=== PATIENT | female | born 1995 | race Caucasian/White ===

== ENCOUNTER 2022-10-16 14:46 | Emergency (ER) | payer MEDICAID, SELFPAY ==
[2022-10-16 14:52] VITALS: BP 116/90; PULSE 111; RESP 18; TEMP 36.7; O2SAT 97; BMI 43.5
--- NOTE | 2022-10-16 15:18 | XR_ITS ---
The [address] [address] Patient Name: BELINDA LUX MRN: [id number] date: 1995 Sex: F Assigned Patient Location: ER Current Patient Location: ER Accession/Order Number: [id number] Exam Date: 10/16/2022 15:32 Report Date: 10/16/2022 15:54 At the request of: STEVE BURK Procedure: XR lumbar spine 2-3V EXAM: XR lumbar spine 2-3V HISTORY: Back spasm COMPARISON: None. TECHNIQUE: 2 views FINDINGS: Maintenance of the normal lumbar lordosis.. Vertebral body heights and alignments exhibit no fracture or listhesis. Intervertebral disc space heights are unremarkable XR/XR lumbar spine 2-3V IMPRESSION: Normal lumbar spine x-rays Electronically authenticated by: FERNANDO ROA Date: 10/16/2022 15:54
--- NOTE | 2022-10-16 15:18 | ED.BACK1 ---
Documented by User: ROBERT Cook 10/16/22 15:59 HPI - Back Pain/Injury General Chief Complaint: Back Pain/Injury Stated Complaint: BACK PAIN Time Seen by Provider: 10/16/22 15:10 Source: patient Mode of arrival: ambulance History of Present Illness HPI Narrative: patient is a 27-year-old female presents to the emergency department for the evaluation of mid to low back pain that began this morning at 5 AM. She denies any mechanism of injury or trauma. She states she has no pain radiation to the lower extremities, no urinary symptoms or peripheral paresthesias. She is not concerned for , she is not sexually active. She states she took one of her father's muscle relaxants a few hours ago and currently has no symptoms or pain in her back. She states she was concerned that the pain may return. She has no other upper respiratory symptoms. No abdominal pain. Related Data Previous Rx's Medication Instructions Recorded methocarbamol 750 mg tablet 750 mg PO TID PRN pain #20 tabs 10/16/22 Allergies Allergy/AdvReac Type Severity Reaction Status Date / Time No Known Drug Allergies Allergy Verified 10/16/22 14:52 Review of Systems ROS Constitutional Denies: fever or chills Ears, nose, mouth, and throat Denies: throat pain Cardiovascular Denies: chest pain Respiratory Denies: shortness of breath Gastrointestinal Denies: abdominal pain, nausea or vomiting Genitourinary Denies: painful urination Musculoskeletal Reports: back pain Integumentary/Breast Denies: rash Endocrine Denies: excessive urination Exam Narrative Exam Narrative: Gen.: Awake, alert, in no distress Head: Normocephalic, atraumatic ENT: Moist mucous membranes Respiratory: No respiratory distress Extremities: Moves extremities equally, normal ambulation with flexion and extension of the lower extremities, no decrease in sensation to the legs Back: no bony tenderness of the T-spine or L-spine. No obvious deformity or step-off. No paraspinal tenderness or posterior chest tenderness Psych: Normal mood and affect Neuro: No focal neuro deficit Skin: Warm, dry, intact Constitutional Vital Signs, click to edit/add: Last Vital Signs Temp 98.0 F 10/16/22 14:52 Pulse 87 10/16/22 16:04 Resp 16 10/16/22 16:04 BP 118/88 10/16/22 16:04 Pulse Ox 99 10/16/22 16:04 O2 Del Method Room Air 10/16/22 14:52 Course Vital Signs Vital signs: Vital Signs Temperature 98.0 F 10/16/22 14:52 Pulse Rate 111 H 10/16/22 14:52 Respiratory Rate 18 10/16/22 14:52 Blood Pressure 116/90 10/16/22 14:52 Pulse Oximetry 97 10/16/22 14:52 Oxygen Delivery Method Room Air 10/16/22 14:52 Temperature 98.0 F 10/16/22 14:52 Pulse Rate 87 10/16/22 16:04 Respiratory Rate 16 10/16/22 16:04 Blood Pressure 118/88 10/16/22 16:04 Pulse Oximetry 99 10/16/22 16:04 Oxygen Delivery Method Room Air 10/16/22 14:52 MDM - Back Pain/Injury MDM Narrative Medical decision making narrative: patient has no pain or focal medical complaints in the Emergency Room. Lumbar spine x-rays are unremarkable and urine specimen with no evidence of blood or urinary tract infection. Patient is prescribed Robaxin for home if pain returns, given education and reassurance. She has stable vital signs and a benign exam at discharge. Follow-up with PCP. Rest, ice, gentle stretching and return to the Emergency Room if symptoms change or worsen. Medical Records Attestation: I reviewed the patient's medical records. Lab Data Labs: Lab Results 10/16/22 Range/Units 15:16 Urine Color Yellow (YELLOW) Urine Clarity Clear (CLEAR) Urine pH 5.5 (5.0-9.0) Ur Specific [place] >=1.030 A (1.005-1.025) Urine Protein Negative (NEG/TRACE) mg/dL Urine Glucose (UA) Negative (NEGATIVE) mg/dL Urine Ketones Negative (NEGATIVE) mg/dL Urine Occult Blood Negative (NEGATIVE) Urine Nitrite Negative (NEGATIVE) Urine Bilirubin Negative (NEGATIVE) Urine Urobilinogen 0.2 (0.2-1.0) EU/dL Ur Leukocyte Esterase Negative (NEGATIVE) Imaging Data XR lumbar spine: Attestation: I have reviewed the pertinent imaging results. Radiologist's impression: Procedure: XR lumbar spine 2-3V EXAM: XR lumbar spine 2-3V HISTORY: Back spasm COMPARISON: None. TECHNIQUE: 2 views FINDINGS: Maintenance of the normal lumbar lordosis.. Vertebral body heights and alignments exhibit no fracture or listhesis. Intervertebral disc space heights are unremarkable IMPRESSION: Normal lumbar spine x-rays Electronically authenticated by: FERNANDO ROA Date: 10/16/2022 15:54 Discharge Plan Discharge Chief Complaint: Back Pain/Injury Clinical Impression: Back pain, Lumbosacral strain Patient Disposition: Home, Self-Care Time of Disposition Decision: 15:58 Condition: Good Prescriptions / Home Meds: New methocarbamol 750 mg tablet 750 mg PO TID PRN (Reason: pain) Qty: 20 0RF Instructions: Muscle Strain (ED), Back Pain (ED) Stand Alone Forms: Portal Instructions Referrals: NIKHIL ROQUE [Primary Care Provider] - 1 week Discharge Date/Time: 10/16/22 16:06 Documented by User: Kirill Medina MD 10/16/22 19:43 HPI - Back Pain/Injury General Chief Complaint: Back Pain/Injury Stated Complaint: BACK PAIN Time Seen by Provider: 10/16/22 15:10 Related Data Previous Rx's Medication Instructions Recorded methocarbamol 750 mg tablet 750 mg PO TID PRN pain #20 tabs 10/16/22 Allergies Allergy/AdvReac Type Severity Reaction Status Date / Time No Known Drug Allergies Allergy Verified 10/16/22 14:52 Exam Constitutional Vital Signs, click to edit/add: Last Vital Signs Temp 98.0 F 10/16/22 14:52 Pulse 87 10/16/22 16:04 Resp 16 10/16/22 16:04 BP 118/88 10/16/22 16:04 Pulse Ox 99 10/16/22 16:04 O2 Del Method Room Air 10/16/22 14:52 Course Vital Signs Vital signs: Vital Signs Temperature 98.0 F 10/16/22 14:52 Pulse Rate 111 H 10/16/22 14:52 Respiratory Rate 18 10/16/22 14:52 Blood Pressure 116/90 10/16/22 14:52 Pulse Oximetry 97 10/16/22 14:52 Oxygen Delivery Method Room Air 10/16/22 14:52 Temperature 98.0 F 10/16/22 14:52 Pulse Rate 87 10/16/22 16:04 Respiratory Rate 16 10/16/22 16:04 Blood Pressure 118/88 10/16/22 16:04 Pulse Oximetry 99 10/16/22 16:04 Oxygen Delivery Method Room Air 10/16/22 14:52 MDM - Back Pain/Injury MDM Narrative Medical decision making narrative: patient has no pain or focal medical complaints in the Emergency Room. Lumbar spine x-rays are unremarkable and urine specimen with no evidence of blood or urinary tract infection. Patient is prescribed Robaxin for home if pain returns, given education and reassurance. She has stable vital signs and a benign exam at discharge. Follow-up with PCP. Rest, ice, gentle stretching and return to the Emergency Room if symptoms change or worsen. I, Dr Medina, have reviewed the above progress note and course of action in the ER; agree with the above. I have personally seen and evaluated this patient, gone over history and physical, and discussed disposition and treatment plan with the patient. Lab Data Labs: Lab Results 10/16/22 Range/Units 15:16 Urine Color Yellow (YELLOW) Urine Clarity Clear (CLEAR) Urine pH 5.5 (5.0-9.0) Ur Specific [place] >=1.030 A (1.005-1.025) Urine Protein Negative (NEG/TRACE) mg/dL Urine Glucose (UA) Negative (NEGATIVE) mg/dL Urine Ketones Negative (NEGATIVE) mg/dL Urine Occult Blood Negative (NEGATIVE) Urine Nitrite Negative (NEGATIVE) Urine Bilirubin Negative (NEGATIVE) Urine Urobilinogen 0.2 (0.2-1.0) EU/dL Ur Leukocyte Esterase Negative (NEGATIVE) Discharge Plan Discharge Chief Complaint: Back Pain/Injury Clinical Impression: Back pain, Lumbosacral strain Patient Disposition: Home, Self-Care Time of Disposition Decision: 15:58 Condition: Good Prescriptions / Home Meds: New methocarbamol 750 mg tablet 750 mg PO TID PRN (Reason: pain) Qty: 20 0RF Instructions: Muscle Strain (ED), Back Pain (ED) Stand Alone Forms: Portal Instructions Referrals: NIKHIL ROQUE [Primary Care Provider] - 1 week Discharge Date/Time: 10/16/22 16:06
[2022-10-16 15:45] LABS: Bilirubin Urine NEGATIVE (NEGATIVE); Blood Urine NEGATIVE (NEGATIVE); Clarity Urine CLEAR (CLEAR); Color Urine YELLOW (YELLOW); Glucose Urine UA NEGATIVE (NEGATIVE); Ketones Urine NEGATIVE (NEGATIVE); Leukocyte Esterase Urine NEGATIVE (NEGATIVE); Nitrite Urine NEGATIVE (NEGATIVE); Protein Urine NEGATIVE (NEG/TRACE); Specific Gravity Urine >=1.030 (1.005-1.025); Urine Microscopic Indicated NO; Urobilinogen Urine 0.2 EU/dL (0.2-1.0); pH Urine 5.5 (5.0-9.0)
[2022-10-16 16:04] VITALS: BP 118/88; PULSE 87; RESP 16; O2SAT 99
== END 2022-10-16 16:06 | disposition home or self-care (01) ==
PROVIDERS: Physician Assistant; Emergency Provider Emergency Medicine; PCP Nurse Practitioner Family
DX: S39.012A Strain of muscle, fascia and tendon of lower back, initial encounter (principal); M54.9 Dorsalgia, unspecified; X58.XXXA Exposure to other specified factors, initial encounter
CPT/HCPCS: 72100; 81003; 99284

== ENCOUNTER 2023-05-06 05:08 | Emergency (ER) | payer MEDICAID, SELFPAY ==
[2023-05-06 05:12] VITALS: BP 167/89; PULSE 93; RESP 18; TEMP 36.5; O2SAT 96; BMI 45.9
--- NOTE | 2023-05-06 05:38 | ED.GENADUL1 ---
HPI - General Adult General Chief complaint: Abdominal Pain Stated complaint: BACK ABD PAIN Time Seen by Provider: 05/06/23 05:35 Source: patient Mode of arrival: walk-in History of Present Illness HPI narrative: This 27-year-old female presented for evaluation of 5 hours of upper abdominal pain and posterior mid-upper back pain associated with nausea. Patient states she started having pain 5 hours ago in her back and abdominal pain approximately 3 hours ago. She states she feels nauseated but has not vomited. She denies any tobacco or alcohol use. She last had a [place] bread pizza before her symptoms started. She denies any fever or cough. She has no chest pain. She denies any dizziness or syncope. She does not smoke and is not on control. She was seen in this emergency department in the past for back pain and had a normal x-ray and urinalysis. She denies the possibility of as she is not sexually active. No medications were taken prior to arrival. Related Data Home Medications Medication Instructions Recorded Confirmed ferrous sulfate 325 mg (65 mg 325 mg PO BID 05/06/23 05/06/23 iron) tablet fluoxetine 10 mg capsule 10 mg PO DAILY 05/06/23 05/06/23 omeprazole 40 mg capsule,delayed 40 mg PO DAILY 05/06/23 05/06/23 release Allergies Allergy/AdvReac Type Severity Reaction Status Date / Time No Known Drug Allergies Allergy Verified 10/16/22 14:52 Review of Systems ROS Status of ROS 10 or more systems reviewed and unremarkable except as noted in history and below [facility] Medical History (Updated 05/06/23 @ 06:49 by Cindy Chou MD) Vitamin D deficiency ?E55.9 - Vitamin D deficiency, unspecified (ICD-10) Anemia ?D64.9 - Anemia, unspecified (ICD-10) Exam Narrative Exam Narrative: Nurses note and vital signs reviewed and patient is not hypoxic Blood pressure is noted to be elevated at 167/89 General: Non toxic but uncomfortable appearing female, no respiratory distress Skin: Warm, dry, Pale, no rash Head: Normocephalic, atraumatic Eye: Normal conjunctiva, no drainage, EOMI. PERRL Ears, Nose, Mouth, and Throat: oral mucosa is moist. Cardiovascular: Regular Rate and Rhythm S1S2, no murmurs, rubs or gallops Respiratory: Patient is in no distress, no accessory muscle use, lungs are clear to auscultation, no wheezing, rales or rhonchi Back: non-tender, no CVA tenderness bilaterally to percussion. GI: Obese, soft, nondistended, epigastric abdominal tenderness and mild RUQ tenderness to deep palpation, no lower abdominal tenderness Musculoskeletal: The patient has no evidence of calf tenderness, no pitting edema, symmetrical pulses noted bilaterally Neurological: A&O x4, normal speech Psychiatric: Cooperative Constitutional Vital Signs, click to edit/add: Last Vital Signs Temp 97.7 F 05/06/23 05:12 Pulse 93 H 05/06/23 05:12 Resp 18 05/06/23 05:12 BP 167/89 H 05/06/23 05:12 Pulse Ox 100 05/06/23 06:20 O2 Del Method Room Air 05/06/23 05:12 Course Vital Signs Vital signs: Vital Signs Temperature 97.7 F 05/06/23 05:12 Pulse Rate 93 H 05/06/23 05:12 Respiratory Rate 18 05/06/23 05:12 Blood Pressure 167/89 H 05/06/23 05:12 Pulse Oximetry 96 05/06/23 05:12 Oxygen Delivery Method Room Air 05/06/23 05:12 Temperature 97.7 F 05/06/23 05:12 Pulse Rate 93 H 05/06/23 05:12 Respiratory Rate 18 05/06/23 05:12 Blood Pressure 167/89 H 05/06/23 05:12 Pulse Oximetry 100 05/06/23 06:20 Oxygen Delivery Method Room Air 05/06/23 05:12 Medical Decision Making [facility] Narrative Medical decision making narrative: 27-year-old female presents for evaluation of back pain and epigastric and right upper quadrant abdominal pain that started presently 5 hours prior to arrival. She last ate a [place] bread pizza last night. Her pain started during the night. Her symptoms are associated with nausea but no vomiting. She is tender in the epigastrium and RUQ. An IV was placed and she was medicated with IV fluids, Zofran and Toradol. Her labs are normal. She is feeling better after the medications and her nausea has improved. Pain is almost gone. Clinically I suspect that she may be having biliary colic. A right upper quadrant ultrasound was ordered and she will be signed out to the incoming physician at 7 AM pending ultrasound evaluation and further disposition. Lab Data Labs: Lab Results 05/06/23 05/06/23 Range/Units 05:20 05:38 WBC 9.9 (4.0-11.0) 10^3/uL RBC 4.79 (4.20-5.40) 10^6/uL Hgb 10.1 L (12.0-16.0) g/dL Hct 35.0 L (36.0-48.0) % MCV 73.1 L (81.0-99.0) fL MCH 21.1 L (26.7-34.0) pg MCHC 28.9 L (29.9-35.2) g/dL RDW 16.5 H (11.0-15.0) % Plt Count 317 (150-450) 10^3/uL MPV 10.5 (9.5-13.5) fL Neut % (Auto) 76.9 H (43.0-75.0) % Lymph % (Auto) 16.0 L (20.5-60.0) % [place] % (Auto) 5.3 (1.7-12.0) % Eos % (Auto) 1.1 (0.9-7.0) % Baso % (Auto) 0.4 (0.2-2.0) % Neut # (Auto) 7.6 H (1.4-6.5) 10^3/uL Lymph # (Auto) 1.6 (1.2-3.8) 10^3/uL [place] # (Auto) 0.5 (0.3-0.8) 10^3/uL Eos # (Auto) 0.1 (0.0-0.7) 10^3/uL Baso # (Auto) 0.0 (0.0-0.1) 10^3/uL Abs Immat Gran (auto) 0.03 (0.00-0.03) 10^3/uL Imm/Tot Granulo (auto) 0.3 (0.0-0.5) % Sodium 142 (136-145) mmol/L Potassium 3.6 (3.5-5.1) mmol/L Chloride 108 H (98-107) mmol/L Carbon Dioxide 24.5 (21.0-32.0) mmol/L Anion Gap 13.1 BUN 14.0 (7.0-18.0) mg/dL Creatinine 0.86 (0.55-1.02) mg/dL Est GFR ( Amer) >60 (>=60) Est GFR (Non-Af Amer) >60 (>=60) BUN/Creatinine Ratio 16.3 Glucose 118 H (74-106) mg/dL Calcium 8.6 (8.5-10.1) mg/dL Total Bilirubin 0.2 (0.2-1.0) mg/dL AST 17 (15-37) U/L ALT 30 (14-59) U/L Alkaline Phosphatase 75 (46-116) U/L Total Protein 7.5 (6.4-8.2) g/dL Albumin 3.5 (3.4-5.0) g/dL Globulin 4.0 g/dL Albumin/Globulin Ratio 0.9 Lipase 24.0 (16.0-77.0) U/L Urine Color Yellow (YELLOW) Urine Clarity Clear (CLEAR) Urine pH 6.0 (5.0-9.0) Ur Specific [place] >=1.030 A (1.005-1.025) Urine Protein Negative (NEG/TRACE) mg/dL Urine Glucose (UA) Negative (NEGATIVE) mg/dL Urine Ketones Negative (NEGATIVE) mg/dL Urine Occult Blood Negative (NEGATIVE) Urine Nitrite Negative (NEGATIVE) Urine Bilirubin Negative (NEGATIVE) Urine Urobilinogen 0.2 (0.2-1.0) EU/dL Ur Leukocyte Esterase Negative (NEGATIVE) Urine RBC None seen (0-2) #/HPF Urine WBC None seen (NONE SEEN) #/HPF Ur Squamous Epith Cells Rare (NONE/RARE) #/LPF Urine Crystals None seen (None Seen) #/HPF Urine Bacteria None seen (NONE SEEN) #/HPF Urine Casts None seen (NONE SEEN) #/LPF Urine Mucus None seen (NONE SEEN) Discharge Plan Discharge Chief Complaint: Abdominal Pain Clinical Impression: Epigastric abdominal pain Patient Disposition: Still a Patient Prescriptions / Home Meds: No Action ferrous sulfate 325 mg (65 mg iron) tablet 325 mg PO BID fluoxetine 10 mg capsule 10 mg PO DAILY omeprazole 40 mg capsule,delayed release(DR/EC) 40 mg PO DAILY Referrals: NIKHIL ROQUE [Primary Care Provider] - 1 week
[2023-05-06 05:41] VITALS: O2SAT 98
[2023-05-06 05:47] LABS: Basophils Percent Auto 0.4 % (0.2-2.0); Eosinophils Absolute Auto 0.1 10^3/uL (0.0-0.7); Eosinophils Percent Auto 1.1 % (0.9-7.0); Hemoglobin 10.1 g/dL (12.0-16.0); Immature Granulocytes Abs Auto 0.03 10^3/uL (0.00-0.03); Immature Granulocytes Pct Auto 0.3 % (0.0-0.5); Lymphocytes Absolute Auto 1.6 10^3/uL (1.2-3.8); Mean Corpuscular HGB Conc 28.9 g/dL (29.9-35.2); Mean Corpuscular Hemoglobin 21.1 pg (26.7-34.0); Mean Corpuscular Volume 73.1 fL (81.0-99.0); Mean Platelet Volume 10.5 fL (9.5-13.5); Monocytes Absolute Auto 0.5 10^3/uL (0.3-0.8); Monocytes Percent Auto 5.3 % (1.7-12.0); Neutrophils Absolute Auto 7.6 10^3/uL (1.4-6.5); Neutrophils Percent Auto 76.9 % (43.0-75.0); Platelet Count 317 10^3/uL (150-450); Red Blood Count 4.79 10^6/uL (4.20-5.40); Red Cell Distribution Width 16.5 % (11.0-15.0); White Blood Count 9.9 10^3/uL (4.0-11.0)
[2023-05-06 05:48] LABS: Bilirubin Urine NEGATIVE (NEGATIVE); Blood Urine NEGATIVE (NEGATIVE); Clarity Urine CLEAR (CLEAR); Color Urine YELLOW (YELLOW); Glucose Urine UA NEGATIVE (NEGATIVE); Ketones Urine NEGATIVE (NEGATIVE); Leukocyte Esterase Urine NEGATIVE (NEGATIVE); Nitrite Urine NEGATIVE (NEGATIVE); Protein Urine NEGATIVE (NEG/TRACE); Specific Gravity Urine >=1.030 (1.005-1.025); Urobilinogen Urine 0.2 EU/dL (0.2-1.0)
[2023-05-06 05:50] VITALS: O2SAT 99
[2023-05-06 05:51] LABS: Bacteria Urine NONE SEEN #/HPF (NONE SEEN); Cast Seen? NONE SEEN #/LPF (NONE SEEN); Crystals Seen? None Seen #/HPF (None Seen); Mucus Urine NONE SEEN (NONE SEEN); RBC Urine NONE SEEN #/HPF (0-2); Squamous Epithelial Cell Urine RARE #/LPF (NONE/RARE); WBC Urine NONE SEEN #/HPF (NONE SEEN)
[2023-05-06 06:00] VITALS: O2SAT 98
[2023-05-06 06:03] LABS: Alanine Aminotransferase 30 U/L (14-59); Albumin Globulin Ratio 0.9; Albumin Level 3.5 g/dL (3.4-5.0); Alkaline Phosphatase 75 U/L (46-116); Anion Gap 13.1; Aspartate Amino Transferase 17 U/L (15-37); BUN Creatinine Ratio 16.3; Bilirubin Total 0.2 mg/dL (0.2-1.0); Calcium 8.6 mg/dL (8.5-10.1); Carbon Dioxide 24.5 mmol/L (21.0-32.0); Chloride 108 mmol/L (98-107); Estimated GFR (African America >60 (>=60); Estimated GFR (Non-African Ame >60 (>=60); Glucose 118 mg/dL (74-106); Potassium 3.6 mmol/L (3.5-5.1); Sodium 142 mmol/L (136-145); Total Protein 7.5 g/dL (6.4-8.2)
[2023-05-06] MEDS: ONDANSETRON PF 4 MG/2 ML VIAL IV (06:04)
[2023-05-06] MEDS: FAMOTIDINE/PF 20 MG/2 ML VIAL IV (06:04)
[2023-05-06] MEDS: KETOROLAC TROMETHAMINE 30 MG/ML VIAL IVP (06:04)
[2023-05-06 06:10] VITALS: O2SAT 99
[2023-05-06] MEDS: 0.9 % SODIUM CHLORIDE 1,000 ML 1000 ML IV (06:13)
[2023-05-06 06:20] VITALS: O2SAT 100
--- NOTE | 2023-05-06 06:43 | US_ITS ---
The [address] [address] Patient Name: BELINDA LUX MRN: [id number] date: 1995 Sex: F Assigned Patient Location: ER Current Patient Location: ER Accession/Order Number: [id number] Exam Date: 05/06/2023 07:12 Report Date: 05/06/2023 08:04 At the request of: KATHRYN MARKER Procedure: US right upper quadrant EXAM: US right upper quadrant HISTORY: RUQ/epigastric abd pain COMPARISON: None. TECHNIQUE: Transabdominal grayscale, color and Doppler FINDINGS: The liver is normal in size and contour. Diffuse increase in hepatic echotexture suggesting steatosis. Normal hepatopedal flow in the main portal vein The gallbladder is normal in size. The wall measures 1.4 mm, normal. Layering echogenic foci likely combination of cholelithiasis and gallbladder sludge. Negative sonographic [place] sign. The common bile duct measures 3.8 mm, normal. The visualized pancreatic body is normal The right kidney is normal measuring 2.6 x 5.2 x 6.1 cm US/US right upper quadrant IMPRESSION: Cholelithiasis and gallbladder sludge without evidence of acute cholecystitis Hepatic steatosis Electronically authenticated by: FERNANDO PAEZ Date: 05/06/2023 08:04
== END 2023-05-06 08:32 | disposition home or self-care (01) ==
PROVIDERS: Emergency Provider Emergency Medicine; PCP Nurse Practitioner Family
DX: K80.20 Calculus of gallbladder without cholecystitis without obstruction (principal); K76.0 Fatty (change of) liver, not elsewhere classified; D64.9 Anemia, unspecified; F84.0 Autistic disorder; E55.9 Vitamin D deficiency, unspecified; R10.13 Epigastric pain
CPT/HCPCS: 36415; 76705; 80053; 81001; 83690; 85025; 96374; 96375; 99284

== ENCOUNTER 2024-08-27 06:54 | Outpatient (OUT) | payer MEDICAID, SELFPAY ==
--- OUTSIDE RECORDS SUMMARY | 2024-07-29 04:19 | XMS_ITS ---
Author Organization The [facility] in [place] Address [address] [place] [address] Care Team Providers Care Manager Business [employer] Name Role Phone Debra Burnett Primary Care Provider [phone] REASON FOR VISIT Yearly Appt Encounters Encounter Location Date Provider Diagnosis [facility] [address] [place] [address] 07/29/2024 Debra Burnett Plan Of Treatment No Information Progress Notes * Gabriela GOMEZ MDOB:1995 (29 yo F)Acc No.[id number]:07/29/2024 Patient: Brayden Gabriela LIMON :1995 A ge:29 Y S ex:Female Address:[address] [place] [address] * true * Date: Generated for Printi ng/Faxing/eTransmitting on: 0 08/27/2024 06:59 AM EDT
--- OUTSIDE RECORDS SUMMARY | 2024-08-26 05:00 | XMS_ITS ---
Demographics Address [address] [place] [address] Mobile Email Address .LastRoom Preferred Language en Marital Status unmarried Yazidism Affiliation Unknown Race White Ethnic Group Not or Lati no Author Organization [facility] [place] Address [address] [place] [address] Care Team Providers Care Phytopathology Teacher Name Role Phone Debra Burnett Primary Care Provider [phone] Allergies No Known Allergies REASON FOR VISIT yearly wellness Medications Medication SIG (Take, Route, Frequency, Duration) Notes Start Date End Date Status FLUoxetine HCl 20 MG TAKE 1 CAPSULE BY M OUTH EVERY DAY Once a day for 90 days Active Vitamin D3 50 MCG (1999 UT) TAKE 1 CAPSULE BY MOUTH EVERY DAY FOR 30 DAYS for 30 Active Omeprazole 40 MG TAKE 1 CAPSULE BY MO UTH EVERY DAY for 30 Active Ferrous Sulfate 325 (65 Fe) MG TAKE 1 TABLET BY MOUTH TWICE A DAY FOR 30 DAYS for 30 Active Cetirizine HCl 10 MG TAKE 1 TABLET BY MO UTH EVERY DAY for 30 Active Social History Tobacco Use: Social History Observation Description Date Details (start date - stop date) Never Smoker NA - NA Tobacco Use/Smoking Question Answer Notes Patient is a nonsmoker AUDIT-C (Standard) Question Answer Notes Did you have a drink containing alcohol in the p ast year? No Points 0 Interpretation Negative Vital Signs Weight 281 lbs 08/26/2024 Height 64 in 08/26/2024 Blood pressure systolic 110 mm Hg 08/27/19 25 Blood pressure diastolic 64 mm Hg 025 BMI 48.23 kg/m2 08/26/2024 Encounters Encounter Location Date Provider Diagnosis [facility] [address] [place] [address] 08/26/2024 Debra Burnett Anxiety disorder, unspecified F41.9 and Wellness examination Z00.00 Assessments Encounter Date Diagnosis (ICD Code) Assessment Notes Treatment Notes Treatment Clinical Notes Section Notes 08/26/2024 Anxiety disorder, unspecified (ICD-10 - F41.9) increase dose of prozac 08/26/2024 Wellness examination (ICD-10 - Z00.00) ROS done exam done encouraged fu obgyn for paps labs ordered discussed weight Plan Of Treatment Medication Medication Name Sig Start Date Stop Date Notes FLUoxetine HCl 20 MG TAKE 1 CAPSULE BY M OUTH EVERY DAY Once a day for 90 days Treatment Notes Assessment Notes Anxiety disorder, unspecified increase d ose of prozac Wellness examination ROS done exam done encouraged fu obgyn for paps labs ordered discussed weight Pending Test Test Name Order Date HEMOGLOBIN A1C (GLYCO) 08/26/2024 IRON, TOTAL 08/26/2024 LIPID PANEL (CHOL/TRIG/HDL/LDL) 08/27/19 25 VITAMIN D, 25 LEVEL (TOTAL) 08/26/2024 Insulin Level 08/26/2024 THYROID PANEL (T4/TSH/FREE T3) 5 CMP (COMP MET MYRICK) w/eGFR CKD-EPI 2024 CBC WITH DIFF 08/26/2024 Next Appt Details Follow Up: 6 Months,prn, [place] son: Progress Notes * Gabriela LUX MDOB:1995 (29 yo F)Acc No.[id number]:08/26/2024 UNLOCKED PROGRESS NOTE Progress Note Patient: Brayden LIMON Gabriela Michelet Provider: Harry Burnett ([facility]), PATTERN MECHANIC :1995 A ge:29 Y S ex:Female Date:08/26/2024 Address:[facility] [address] [facility] Check In:08:45 AM ESTCheck O ut:09:13 AM EST Subjective: * Chief Complaints: * 1 . Yearly wellness. * HPI: G eneral: no labs recently BH labs may be moving in with sister soon not working anxiety could be better at times no other concerns. D epression Screening: PHQ-9 L ittle interest or pleasure in doing things?Several days F eeling down, depressed, or hopeless S everal days T rouble falling or staying asleep, or sleeping too much S everal days F eeling tired or having little energy N ot at all P oor appetite or overeating M ore than half the days F eeling bad about yourself or that you are a failure, or have let yourself or your family down N early every day T rouble concentrating on things, such as reading the newspaper or watching television N ot at all M oving or speaking so slowly that other people could have noticed; or the opposite, being so fidgety or restless that you have been moving around a lot more than usual N ot at all T houghts that you would be better off or of hurting yourself in some way M ore than half the days (Consider Suicide Assessment Risk) T otal Score 1 0 I nterpretation M oderate Depression * ROS: G eneral/Constitutional: Anxiety a t times bad. F ever d enies. H eadache d enies. W eight loss d enies. O phthalmologic: Discharge d enies. E ye Pain d enies. I tching and redness d enies. E NT: Nasal discharge d enies. N harsh congestion d enies.?Sore throat d enies. C ardiovascular: Chest tightness/ heavy pressure d enies. R apid heart rate d enies. S welling of extremities d enies. C hest pain d enies. ? R espiratory: Productive cough d enies. C hest pain d enies. C ough d enies. S hortness of breath d enies. W heezing d enies. ? G astrointestinal: Abdominal pain d enies. C onstipation d enies. D ecreased appetite d enies. D iarrhea d enies. N ausea d enies. V omiting?denies. G enitourinary: Urinary incontinence d enies. P ainful urination d enies. M usculoskeletal: Back pain d enies. N ho pain d enies. M uscle aches d enies. S kin: Rash d enies. S kin lesion(s) d enies. ? * Medical History: V itamin D deficiency, Hyperglycemia, Iron deficiency anemia, Seasonal allergies, Depression, GERD (gastroesophageal reflux disease), Anxiety. * Surgical History: g allbladder removed 06-16-23. * Hospitalization/Major Diagno stic Procedure: d enies . * Family History: F ather: alive, migraines, , vertigo, nerve damage in legs, diagnosed with Diabetes mellitus without mention of complication, type II or unspecified type, not stated as uncontrolled, Kidney stones. M other: 44 yrs. S ister(s): alive, PCOS, migraines. 1 sister(s) . . Mother passed from infection in the heart. * Social History: T obacco Use: T obacco Use/Smoking P atient is a n onsmoker D rug/Alcohol: A NEO-C (Standard) D id you have a drink containing alcohol in the past year? N o P oints 0 I nterpretation N egative * Medications: T aking Cetirizine HCl 10 MG Tablet TAKE 1 TABLET BY MOUTH EVERY DAY , Taking Ferrous Sulfate 325 (65 Fe) MG Tablet TAKE 1 TABLET BY MOUTH TWICE A DAY FOR 30 DAYS , Taking FLUoxetine HCl 10 MG Capsule TAKE 1 CAPSULE BY MOUTH EVERY DAY , Taking Omeprazole 40 MG Capsule Delayed Release TAKE 1 CAPSULE BY MOUTH EVERY DAY , Taking Vitamin D3 50 MCG (2000 UT) Capsule TAKE 1 CAPSULE BY MOUTH EVERY DAY FOR 30 DAYS , Medication List reviewed and reconciled with the patient * Allergies: N .K.D.A. Objective: * Vitals: W t:281lbs, Ht: 64 in, BP:110/64mm Hg, BMI:48.23Index, Ht-cm: 162.56 cm, Wt-k.46 kg. * Examination: G eneral Examinations: GENERAL APPEARANCE: a lert and oriented, in no acute distress, obese. EYES: c onjunctiva normal, sclera non-icteric. EARS: e xternal auditory canals are patent. Tympanic membranes are pearly campbell and mobile. NOSE: n ormal external appearance. LUNGS: c lear to auscultation bilaterally. CARDIO: r egular rate and rhythm, S1, S2 normal. ABDOMEN: s oft, nontender. MUSCULOSKELETAL: G ait and station normal. SKIN: w arm and dry. Assessment: * Assessment: 1. A nxiety disorder, unspecified - F41.9 (Primary) 2 . W ellness examination - Z00.00 Plan: * Treatment: 2. W ellness examination Refill FLUoxetine HCl Capsule, 20 MG, TAKE 1 CAPSULE BY MOUTH EVERY DAY, Once a day, 90 days, 90, Refills 3. L AB: HEMOGLOBIN A1C (GLYCO) L AB: IRON, TOTAL L AB: LIPID PANEL (CHOL/TRIG/HDL/LDL) L AB: VITAMIN D, 25 LEVEL (TOTAL) L AB: Insulin Level L AB: THYROID PANEL (T4/TSH/FREE T3) L AB: CMP (COMP MET MYRICK) w/eGFR CKD-EPI L AB: CBC WITH DIFF Notes: ROS done exam done encouraged fu obgyn for paps labs ordered discussed weight * Preventive Medicine: Screenings/Counseling: B CT ACTION PLAN Above Normal BMI Follow-up D ietary management education, guidance, and counseling * Follow Up: 6 Months,prn * * Electronic signature of Ritu Garcia NP, NATURAL SCIENCE MANAGER.PATTERN [id number] on 08/27/2024 at 06:58 AM EDT Sign off status: Pending Visit Status: C ARNULFO (Check Out) * Provider: Harry Burnett ([facility]), PATTERN MECHANIC Date: 0 08/26/2024 Generated for Vanessai ng/Fanarendrag/eTransmitting on: 0 08/27/2024 06:58 AM EDT History and Physical Notes * HPI (History of Present Illness) Category Sub-Category Detail Notes Category Not es Depression Screening PHQ-9 Little inte rest or pleasure in doing things: Several days Feeling down, depressed, or hopeless: Se veral days Trouble falling or staying asleep, or sl eeping too much: Several days Feeling tired or having little energy: N ot at all Poor appetite or overeating: More than h darien the days Feeling bad about yourself o r that you are a failure, or have let yourself or your family down: Nearly every day Trouble concentrating on thi ngs, such as reading the newspaper or watching television: Not at all Moving or speaking so slowly that other people could have noticed; or the opposite, being so fidgety or restless that you have been moving around a lot more than usual: Not at all Thoughts that you would be b sabrina off or of hurting yourself in some way: More than half the days (Consider Suicide Assessment Risk) Total Score: 10 Interpretation: Moderate Depression General no labs recently labs may be moving in with sister soon not working anxiety could be better at times no other concerns Examination Category Sub-Category Detail Notes Category Not es General Examinations GENERAL APPEARANCE: alert a nd oriented, in no acute distress, obese EYES: conjunctiva normal, sclera non-icteric EARS: external auditory ca nals are patent. Tympanic membranes are pearly campbell and mobile NOSE: normal external appe arance THROAT: CARDIO: regular rate and rhy thm, S1, S2 normal LUNGS: clear to auscultatio n bilaterally ABDOMEN: soft, nontender SKIN: warm and dry BACK: MUSCULOSKELETAL: Gait and station nor mal LYMPH NODES:
--- OUTSIDE RECORDS SUMMARY | 2024-08-26 05:16 | XMS_ITS ---
Demographics Address [address] [place] [address] Mobile Email Address Preferred Language en Marital Status unmarried Methodist Affiliation Unknown Race White Ethnic Group Not or Lati no Author Organization [facility] [place] Address [address] [place] [address] Care Team Providers Care College Recruiter Name Role Phone Debra Burnett Primary Care Provider Medications Medication SIG (Take, Route, Frequency, Duration) Notes Start Date End Date Status Cetirizine HCl 10 MG TAKE 1 TABLET BY MO UTH EVERY DAY for 30 Active Ferrous Sulfate 325 (65 Fe) MG 1 tablet Orally Three times a Week for 90 days Active Omeprazole 40 MG TAKE 1 CAPSULE BY MO UTH EVERY DAY for 90 days Active Vitamin D3 50 MCG (1999 UT) TAKE 1 CAPSULE BY MOUTH EVERY DAY FOR 30 DAYS for 90 days Active Encounters Encounter Location Date Provider Diagnosis [facility] [address] [place] [address] 08/26/2024 Debra Burnett Plan Of Treatment Medication Medication Name Sig Start Date Stop Date Notes Cetirizine HCl 10 MG TAKE 1 TABLET BY MO UTH EVERY DAY for 30 Ferrous Sulfate 325 (65 Fe) MG 1 tablet Orally Three times a Week for 90 days Omeprazole 40 MG TAKE 1 CAPSULE BY MO UTH EVERY DAY for 90 days Vitamin D3 50 MCG (1999 UT) TAKE 1 CAPSU LE BY MOUTH EVERY DAY FOR 30 DAYS for 90 days Progress Notes * Gabriela LUX MDOB:1995 (29 yo F)Acc No.[id number]:08/26/2024 Patient: Brayden Gabriela LIMON :1995 A ge:29 Y S ex:Female Address:[address] [place] [address] * Refills Refill Cetirizine HCl Tablet, 10 MG, 30 Tablet, TAKE 1 TABLET BY MOUTH EVERY DAY, 30, Refills=11 Refill Ferrous Sulfate Tablet, 325 (65 Fe) MG, Orally, 12, 1 tablet, Three times a Week, 90 days, Refills=3 Refill Omeprazole Capsule Delayed Release, 40 MG, 90, TAKE 1 CAPSULE BY MOUTH EVERY DAY, 90 days, Refills=3 Refill Vitamin D3 Capsule, 50 MCG (2000 UT), 90, TAKE 1 CAPSULE BY MOUTH EVERY DAY FOR 30 DAYS, 90 days, Refills=3 Subjective: * Chief Complaints: * * Medical History: * Surgical History: * Hospitalization/Major Diagno stic Procedure: * Medications: Objective: * Vitals: * Physical Examination: Assessment: Plan: * Treatment: * Procedure Codes: * true * Date: Generated for Ben ashley/Luis Angel/Serenaitting on: 0 08/27/2024 06:58 AM EDT
--- OUTSIDE RECORDS SUMMARY | 2024-08-27 06:58 | XMS_ITS | Clinical Summary ---
Author Organization [facility] Address [address] [place] [address] Care Team Providers Care Snow Ranger Name Role Phone Unavailable Primary Care Provider Unavailabl e Social History Tobacco Use Types Packs/Day Years Used Date Smoking Tobacco: Never Assessed Comments Unknown Sex and Gender Information Value Date Recorded Sex Assigned at Not on file Legal Sex Female 11:37 PM EDT Gender Identity Not on file Sexual Orientation Not on file Last Filed Vital Signs Vital Sign Reading Time Taken Comments Blood Pressure 124/80 12/04/2021 12:00 PM EDT Pulse - - Temperature - - Respiratory Rate - - Oxygen Saturation - - Inhaled Oxygen Concentration - - Weight 126 kg (278 lb) 12/04/2021 12:00 PM EDT Height 165.1 cm (5' 5 ) 12/04/2021 12:00 PM EDT Body Mass Index 46.26 12/04/2021 12:00 PM EDT Plan of Treatment Not on file
--- OUTSIDE RECORDS SUMMARY | 2024-08-27 06:59 | XMS_ITS | CCD ---
Demographics Address [address] [place] [id number] Preferred Language en Marital Status Single Episcopalian Affiliation Unknown Race White Ethnic Group Not or Lati no Author Organization [facility] Care Team Providers Care Basketball Commentator Name Role Phone DEBRA CRONIN Attending Unavailable MEHRDAD, DEBRA Admitting Unavailable DEBRA CRONIN Attending Unavailable DEBRA CRONIN Consulting Unavailable MEHRDAD, DEBRA Admitting Unavailable NANDO, RHODA M Referring Unavailable JUDE, DEBRA S Primary Care Unavailable FERNANDO RICARDO Attending Unavailable FERNANDO RICARDO Referring Unavailable JUDE, DEBRA S Primary Care Unavailable FERNANDO RICARDO Referring Unavailable JUDE, DEBRA S Primary Care Unavailable NANDO, RHODA M Admitting Unavailable NANDORHODA M Attending Unavailable NANDO, MENNATALLAH M Referring Unavailable JUDE, DEBRA S Primary Care Unavailable MICHELLE MORIN Attending Unavailable JUDE, DEBRA S Primary Care Unavailable NANDO, MENNATALLAH M Attending Unavailable JUDE, DEBRA S Referring Unavailable JUDE, DEBRA S Primary Care Unavailable JASON GONZALEZ Attending Unavailable JUDE, DEBRA S Referring Unavailable JUDE, DEBRA S Primary Care Unavailable Jude CREDIT [employer]AMINER[employer]TREE Debra S Primary Care Provider Medications Current Medications Medication Drug Class(es) Dates Sig (Normalized) Sig (Original) acetaminophen 500 mg oral tablet (1 source) Start: 06-16-2023 take 2 tablets by mouth every six hours acetaminophen (TYLENOL EXTRA STRENGTH) 500 mg tablet Take 2 tablets (1,000 mg total) by mouth every 6 (six) hours. 30 tablet 06/16/2023 Active cetirizine hydrochloride 10 mg oral tablet (3 sources) Histamine-1 Receptor Antagonist Start: 05-09-2023 take 1 tablet by mouth in the morning cetirizine (ZyrTEC) 10 mg tablet Take 1 tablet (10 mg total) by mouth in the morning. 05/09/2023 Active cholecalciferol 0.05 mg oral capsule (3 sources) Vitamin D Start: 04-17-2023 take 1 capsule by mouth in the morning VITAMIN D3 50 mcg (2,000 unit) capsule Take 1 capsule (2,000 Units total) by mouth in the morning. 04/17/2023 Active ferrous sulfate 325 mg oral tablet (3 sources) Start: 04-17-2023 take 1 tablet by mouth in the morning, then take 1 tablet by mouth at mealtime ferrous sulfate 325 (65 FE) mg tablet Take 1 tablet (325 mg total) by mouth in the morning and 1 tablet (325 mg total) in the evening. Take with meals. 04/17/2023 Active FLUoxetine 10 mg oral capsule (3 sources) Serotonin Reuptake Inhibitor Start: 05-09-2023 take 1 capsule by mouth in the morning FLUoxetine (PROzac) 10 mg capsule Take 1 capsule (10 mg total) by mouth in the morning. 05/09/2023 Active ibuprofen 600 mg oral tablet (1 source) Nonsteroidal Anti-inflammatory Drug Start: 06-16-2023 take 1 tablet by mouth every six hours ibuprofen (MOTRIN) 600 mg tablet Take 1 tablet (600 mg total) by mouth every 6 (six) hours. 30 tablet 06/16/2023 Active omeprazole 40 mg delayed release oral capsule (3 sources) Proton Pump Inhibitor Start: 05-09-2023 take 1 capsule by mouth once daily before breakfast omeprazole (PriLOSEC) 40 mg capsule Take 1 capsule (40 mg total) by mouth every morning before breakfast. 05/09/2023 Active Problems Problem Classification Problem Date Documented Date Episodic/Chronic Biliary tract disease (4 sources) Calculus of gallbladder without cholecystitis without obstruction; Translations: [Biliary colic] Onset: 05-27-2023 05-27-2023 Episodic Deficiency and other anemia (4 sources) Anemia, unspecified; Translations: [ANEMIA UNSPECIFIED] Onset: 08-03-2021 Episodic Nutritional deficiencies (1 source) Iron deficiency; Translations: [IRON DEFICIENCY] Onset: 08-09-2021 Episodic Other nutritional; endocrine; and metabolic disorders (1 source) Body mass index (BMI) 45.0-49.9, adult; Translations: [Body mass index (BMI) 45.0-49.9, adult] Onset: 05-29-2023 Chronic Other nutritional; endocrine; and metabolic disorders (1 source) Body mass index 40+ - severely obese; Translations: [Body mass index (BMI) 45.0-49.9, adult] 05-27-2023 Chronic Residual codes; unclassified (1 source) Acquired absence of other specified parts of digestive tract; Translations: [Acquired absence of other specified parts of digestive tract] Onset: 06-30-2023 Episodic Residual codes; unclassified (1 source) Pain, unspecified; Translations: [Pain, unspecified] Onset: 05-13-2023 Episodic Unclassified (1 source) POST-OP VISIT Onset: 06-30-2023 Unclassified (1 source) Cholelithiasis Onset: 05-27-2023 Results Test Name Value Interpretation Reference Range Facility HCG ( test) Ql (U)o n 06-16-2023 Beta HCG ( test) Ql (U) Negative Normal NEG [facility] Comment on above: Performed By: #### 2 106-3 #### [facility] ([id number]) [address] [place] [address], [place] [address] Surgical Pathologyon 024 Surgical Pathology Normal [facility] Comment on above: Result Comment: [facility] [address] [place] [address] Surgical Pathology Consultation Patient Name:BELINDA LUX:1995 (Age: 28)Gender:FTaken:4Reported:06/19/2023hysician(s):Kelsi Dickinson MD ([phone])Copy To: Rec. #:[id number]: #[id number] Final Pathologic Diagnosis Gallbladder, cholecystectomy: Cholelithiasis. Cholesterolosis. Benign lymph node. Report Electronically Signed Out pss/06/19/2023kymberly Anderson MD Interpretation performed at [facility], [address] [place] [address], License number: [id number]. Clinical History Biliary colic. Gross Description Received in formalin labeled MACI, gallbladder is an intact gallbladder that measures, 6.1 x 3.4 x 3.2 cm with a cystic duct of 0.1 cm. A brown to purple-campbell lymph node is identified adjacent to the cystic duct, 0.7 cm. The lymph node is trisected and entirely submitted in cassette B. The serosal surface is lerner to purple-campbell with an area of lerner to purple-campbell granular soft tissue consistent with hepatic bed. The gallbladder is opened and filled with green viscous bile. Yellow granular calculi are identified within the lumen, 0.3-1.3 cm. The mucosa is green and velvety with yellow striations. The gallbladder wall is 0.1-0.2 cm in thickness. Digital Artist cross-sections are submitted within cassette A. (2, ss, [id number],m2) DM. dm/06/17/2023NSK Specimen(s) Received Gallbladder Fee Codes(s): 1; 92443 BASIC METABOLIC PANLon 05-28 Anion gap [Moles/Vol] 9 mmol/L Normal 5-15 [facility] Comment on above: Performed By: #### B MP #### [facility] ([id number]) [address], [address] [place] [address] Calcium [Mass/Vol] 8.8 mg/dL Normal 8.5-10.5 [facility] Comment on above: Performed By: #### B MP #### [facility] ([id number]) [address], [address] [place] [address] Chloride [Moles/Vol] 105 mmol/L Normal 98-109 [facility] Comment on above: Performed By: #### B MP #### [facility] ([id number]) [address] [address] [place] [address] CO2 [Moles/Vol] 25 mmol/L Normal 22-32 [facility] Comment on above: Performed By: #### B MP #### [facility] ([id number]) [address], [address] [place] [address] Creatinine [Mass/Vol] 0.97 mg/dL Normal 0.40-1.00 [facility] Comment on above: Result Comment: METH OD TRACEABLE TO IDMS STANDARD Performed By: #### B MP #### [facility] ([id number]) [address], [address] [place] [address] GFR/1.73 sq M.predicted among non-blacks MDRD (S/P/Bld) [Vol rate/Area] 83 mL/min/{1.73_m2} Normal >59 [facility] Comment on above: Result Comment: Reported eGFR is based on the CKD-EPI 2020 equation that does not use a race coefficient. Performed By: #### B MP #### [facility] ([id number]) [address], [address] [place] [address] Glucose [Mass/Vol] 103 mg/dL High 65-99 [facility] Comment on above: Performed By: #### B MP #### [facility] ([id number]) [address], [address] [place] [address] Potassium [Moles/Vol] 3.9 mmol/L Normal 3.5-5.0 [facility] Comment on above: Performed By: #### B MP #### [facility] ([id number]) [address], [address] [place] [address] Sodium [Moles/Vol] 139 mmol/L Normal 134-146 [facility] Comment on above: Performed By: #### B MP #### [facility] ([id number]) [address], [address] [place] [address] Urea nitrogen [Mass/Vol] 11 mg/dL Normal 5-23 [facility] Comment on above: Performed By: #### B MP #### [facility] ([id number]) [address], [address] [place] [address] Basic Metabolic Panelon 03-2 Anion gap [Moles/Vol] 9 mmol/L 5 - 15 mmol/L [facility] Calcium [Mass/Vol] 8.8 mg/dL 8.5 - 10. 5 mg/dL [facility] Chloride [Moles/Vol] 105 mmol/L 98 - 10 9 mmol/L [facility] CO2 [Moles/Vol] 25 mmol/L 22 - 32 mmol/L [facility] Creatinine [Mass/Vol] 0.97 mg/dL 0.40 - 1.00 mg/dL [facility] Comment on above: METHOD TRACEABLE TO IDDC STANDARD eGFR (CKD-EPI)non-race dependent 83 - PINF [facility] Comment on above: Reported eGFR is based on the CKD-EPI 2020 equation that does not use a race coefficient. Glucose [Mass/Vol] 103 mg/dL High 65 - 99 mg/dL [facility] Interpretation and review of laboratory results Abnormal [facility] Potassium [Moles/Vol] 3.9 mmol/L 3.5 - 5.0 mmol/L [facility] Sodium [Moles/Vol] 139 mmol/L 134 - 146 mmol/L [facility] Urea nitrogen [Mass/Vol] 11 mg/dL 5 - 23 mg/dL [facility] INSULINon 08-04-2021 Insulin 80.4 uIU/mL Critically high 2.6-24.9 [facility] Comment on above: Performed By: #### I NSULIN #### [facility] [address] [place] [address] Dr. Roxanna Dacosta T4 LABCORPon 08-04-2021 T4 [Mass/Vol] 7.6 ug/dL Normal 4.5-12.0 [facility] Comment on above: Performed By: #### T 4LC #### [facility] [address] [place] [address] Dr. Roxanna Dacosta CBC AUTO DIFFon 08-03-2021 BASO # 0.0 103/ul Normal 0.0-0.1 [facility] [place] [facility] Comment on above: Performed By: #### C BC #### [facility] [address] [place] [address] Dr. Roxanna Dacosta Basophils/100 WBC (Bld) 0.3 % Normal 0.2-2.0 [facility] [place] [facility] Comment on above: Performed By: #### C BC #### [facility] [address] [place] [address] Dr. Roxanna Dacosta EO # 0.3 103/ul Normal 0.0-0.7 [facility] Comment on above: Performed By: #### C BC #### [facility] [address] [place] [address] Dr. Roxanna Dacosta Eosinophils/100 WBC (Bld) 3.1 % Normal 0.9-7.0 [facility] Comment on above: Performed By: #### C BC #### [facility] [address] [place] [address] Dr. Roxanna Dacosta Erythrocyte distribution width (RBC) [Ratio] 16.0 % Critically high 11.0-15.0 [facility] Comment on above: Performed By: #### C BC #### [facility] [address] [place] [address] Dr. Roxanna Dacosta Hematocrit (Bld) [Volume fraction] 36.9 % Normal 36.0-48.0 [facility] Comment on above: Performed By: #### C BC #### [facility] [address] [place] [address] Dr. Roxanna Dacosta Hemoglobin (Bld) [Mass/Vol] 10.5 g/dL Critically low 12.0-16.0 [facility] Comment on above: Performed By: #### C BC #### [facility] [address] [place] [address] Dr. Roxanna Dacosta IG # 0.02 10e3/ul Normal 0.00-0.03 [facility] Comment on above: Performed By: #### C BC #### [facility] [address] [place] [address] Dr. Roxanna Dacosta IG % 0.2 % Normal 0.0-0.5 [facility] Comment on above: Performed By: #### C BC #### [facility] [address] [place] [address] Dr. Roxanna Dacosta LYMPH # 3.4 103/ul Normal 1.2-3.8 [facility] Comment on above: Performed By: #### C BC #### [facility] [address] [place] [address] Dr. Roxanna Dacosta Lymphocytes/100 WBC (Bld) 33.3 % Normal 20.5-60.0 [facility] Comment on above: Performed By: #### C BC #### [facility] [address] [place] [address] Dr. Roxanna Dacosta MANUAL DIFF REQ NO Normal [facility] Comment on above: Performed By: #### C BC #### [facility] [address] [place] [address] Dr. Roxanna Dacosta MCH (RBC) [Entitic mass] 20.6 pg Critically low 26.7-34.0 [facility] Comment on above: Performed By: #### C BC #### [facility] [address] [place] [address] Dr. Roxanna Dacosta MCHC (RBC) [Mass/Vol] 28.5 g/dL Critically low 29.9-35.2 [facility] Comment on above: Performed By: #### C BC #### [facility] [address] [place] [address] Dr. Roxanna Dacosta MCV (RBC) [Entitic vol] 72.5 fL Critically low 81.0-99.0 [facility] Comment on above: Performed By: #### C BC #### [facility] [address] [place] [address] Dr. Roxanna Dacosta MONO # 0.6 103/ul Normal 0.3-0.8 [facility] Comment on above: Performed By: #### C BC #### [facility] [address] [place] [address] Dr. Roxanna Dacosta Monocytes/100 WBC (Bld) 5.8 % Normal 1.7-12.0 [facility] Comment on above: Performed By: #### C BC #### [facility] [address] [place] [address] Dr. Roxanna Dacosta NEUT # 5.9 103/ul Normal 1.4-6.5 [facility] Comment on above: Performed By: #### C BC #### [facility] [address] [place] [address] Dr. Roxanna Dacosta Neutrophils/100 WBC (Bld) 57.3 % Normal 43.0-75.0 [facility] Comment on above: Performed By: #### C BC #### [facility] [address] [place] [address] Dr. Roxanna Dacosta Platelet mean volume (Bld) [Entitic vol] 11.0 fL Normal 9.5-13.5 [facility] Comment on above: Performed By: #### C BC #### [facility] [address] [place] [address] Dr. Roxanna Dacosta PLT 295 103/ul Normal 150-450 [facility] Comment on above: Performed By: #### C BC #### [facility] [address] [place] [address] Dr. Roxanna Dacosta RBC 5.09 106/ul Normal 4.20-5.40 [facility] Comment on above: Performed By: #### C BC #### [facility] [address] [place] [address] Dr. Roxanna Dacosta WBC 10.3 103/ul Normal 4.0-11.0 [facility] Comment on above: Performed By: #### C BC #### [facility] [address] [place] [address] Dr. Roxanna Dacosta FREE THYROXINE INDEX T7on FTI 2.66 Normal 1.30-4.50 [facility] Comment on above: Performed By: #### L IPID, T7, TSH, CMP #### [facility] [address] [place] [address] Dr. Roxanna Dacosta T3U 35.0 % Normal 30.0-39.0 [facility] Comment on above: Performed By: #### L IPID, T7, TSH, CMP #### [facility] [address] [place] [address] Dr. Roxanna Dacosta T4 [Mass/Vol] 7.60 ug/dL Normal 4.80-13.90 [facility] Comment on above: Performed By: #### L IPID, T7, TSH, CMP #### [facility] [address] [place] [address] [address] Roxanna Dacosta GLYCOHEMOGLOBIN A1Con 2021 ADA RECOMMENDATION SEE BELOW Normal [facility] Comment on above: Result Comment: ADA RECOMMENDED LIMIT 4.0 - 6.0 ADA THERAPEUTIC TARGET < 7.0 ACTION SUGGESTED > 7.0 Performed By: #### A 1C #### [facility] [address] [place] [address] [address] Roxanna Dacsota Glucose [Mass/Vol] 120 mg/dL Normal [facility] Comment on above: Performed By: #### A 1C #### [facility] [address] [place] [address] Dr. Roxanna Dacosta HbA1c (Bld) [Mass fraction] 5.8 % Normal 4.5-6.2 [facility] Comment on above: Performed By: #### A 1C #### [facility] [address] [place] [address] Dr. Roxanna Dacosta IRONon 08-03-2021 Iron [Mass/Vol] 16.0 ug/dL Critically low 50.0-170.0 [facility] Comment on above: Performed By: #### I REKHA #### [facility] [address] [place] [address] Dr. Roxanna Dacosta LIPID PROFILEon 08-03-2021 CHOL-HDL RATIO NORM SEE BELOW Normal [facility] Comment on above: Result Comment: 3.3 - 4.4 LOW RISK 4.4 - 7.1 AVERAGE RISK 7.1 - 11.0 MODERATE RISK >11.0 HIGH RISK Performed By: #### L IPID, T7, TSH, CMP #### [facility] [address] [address] [address] Roxanna Dacosta Cholesterol [Mass/Vol] 81 mg/dL Normal <=200 [facility] Comment on above: Performed By: #### L IPID, T7, TSH, CMP #### [facility] [address] [place] [address] Dr. Roxanna Dacosta Cholesterol in HDL [Mass/Vol] 40 mg/dL Normal 40-60 [facility] Comment on above: Performed By: #### L IPID, T7, TSH, CMP #### [facility] [address] [address] [address] Roxanna Dacosta Cholesterol in LDL [Mass/Vol] 26.2 mg/dL Normal [facility] Comment on above: Performed By: #### L IPID, T7, TSH, CMP #### [facility] [address] [place] [address] [address] Roxanna Dacosta Cholesterol.total/Cho lesterol in HDL [Mass ratio] 2.0 {ratio} Normal [facility] Comment on above: Performed By: #### L IPID, T7, TSH, CMP #### [facility] [address] [place] [address] Dr. Roxanna Dacosta HDL NORMAL > or = 60 mg/dl - LOW CARDIOVASCULAR RISK <40 mg/dl - HIGH CARDIOVASCULAR RISK Normal [facility] Comment on above: Performed By: #### L IPID, T7, TSH, CMP #### [facility] [address] [place] [address] Dr. Roxanna Dacosta LDL CALC NORMAL SEE BELOW Normal [facility] Comment on above: Result Comment: <100 mg/dl OPTIMAL 100 - 129 mg/dl NEAR OR ABOVE OPTIMAL 130 - 159 mg/dl BORDERLINE HIGH 160 - 189 mg/dl HIGH >190 mg/dl VERY HIGH Performed By: #### L IPID, T7, TSH, CMP #### [facility] [address] [address] [address] Roxanna Dacosta Triglyceride [Mass/Vol] 74 mg/dL Normal <=150 [facility] Comment on above: Performed By: #### L IPID, T7, TSH, CMP #### [facility] [address] [address] [address] Roxanna Dacosta VLDL CALC 14.8 mg/dL Normal [facility] Comment on above: Performed By: #### L IPID, T7, TSH, CMP #### [facility] [address] [address] [address] Roxanna Dacosta PROF 14(COMP METB)on 022 Albumin [Mass/Vol] 3.4 g/dL Normal 3.4-5.0 [facility] Comment on above: Performed By: #### L IPID, T7, TSH, CMP #### [facility] [address] [address] [address] Roxanna Dacosta Albumin/Globulin [Mass ratio] 0.8 {ratio} Normal [facility] Comment on above: Performed By: #### L IPID, T7, TSH, CMP #### [facility] [address] [address] [address] Roxanna Dacosta ALP [Catalytic activity/Vol] 78 U/L Normal 46-116 [facility] Comment on above: Performed By: #### L IPID, T7, TSH, CMP #### [facility] [address] [place] [address] Dr. Roxanna Dacosta ALT [Catalytic activity/Vol] 21 U/L Normal 14-59 [facility] Comment on above: Performed By: #### L IPID, T7, TSH, CMP #### [facility] [address] [address] [address] Roxanna Dacosta Anion gap [Moles/Vol] 13.1 mmol/L Normal [facility] Comment on above: Performed By: #### L IPID, T7, TSH, CMP #### [facility] [address] [place] [address] Dr. Roxanna Dacosta AST [Catalytic activity/Vol] 13 U/L Critically low 15-37 [facility] Comment on above: Performed By: #### L IPID, T7, TSH, CMP #### [facility] [address] [address] [address] Roxanna Dacosta Bilirubin [Mass/Vol] 0.2 mg/dL Normal 0.2-1.0 [facility] Comment on above: Performed By: #### L IPID, T7, TSH, CMP #### [facility] [address] [address] [address] Roxanna Dacosta Calcium [Mass/Vol] 8.2 mg/dL Critically low 8.5-10.1 [facility] Comment on above: Performed By: #### L IPID, T7, TSH, CMP #### [facility] [address] [place] [address] Dr. Roxanna Dacosta Chloride [Moles/Vol] 103 mmol/L Normal 98-107 [facility] Comment on above: Performed By: #### L IPID, T7, TSH, CMP #### [facility] [address] [place] [address] Dr. Roxanna Dacosta CO2 [Moles/Vol] 24.7 mmol/L Normal 21.0-32.0 [facility] Comment on above: Performed By: #### L IPID, T7, TSH, CMP #### [facility] [address] [place] [address] Dr. Roxanna Dacosta Creatinine [Mass/Vol] 0.86 mg/dL Normal 0.55-1.02 [facility] Comment on above: Performed By: #### L IPID, T7, TSH, CMP #### [facility] [address] [place] [address] Dr. Roxanna Dacosta EGFR-AF WELSH >60 Normal >=60 [facility] Comment on above: Performed By: #### L IPID, T7, TSH, CMP #### [facility] [address] [place] [address] Dr. Roxanna Dacosta EGFR-NON AF WELSH >60 Normal >=60 [facility] Comment on above: Performed By: #### L IPID, T7, TSH, CMP #### [facility] [address] [place] [address] Dr. Roxanna Dacosta Globulin (S) [Mass/Vol] 4.1 g/dL Normal [facility] Comment on above: Performed By: #### L IPID, T7, TSH, CMP #### [facility] [address] [place] [address] Dr. Roxanna Dacosta Glucose [Mass/Vol] 117 mg/dL Critically high 74-106 [facility] Comment on above: Performed By: #### L IPID, T7, TSH, CMP #### [facility] [address] [place] [address] Dr. Roxanna Dacosta Potassium [Moles/Vol] 3.8 mmol/L Normal 3.5-5.1 [facility] Comment on above: Performed By: #### L IPID, T7, TSH, CMP #### [facility] [address] [place] [address] Dr. Roxanna Dacosta Protein [Mass/Vol] 7.5 g/dL Normal 6.4-8.2 [facility] Comment on above: Performed By: #### L IPID, T7, TSH, CMP #### [facility] Laboratory [address] [place] [address] Dr. Roxanna Dacosta Sodium [Moles/Vol] 137 mmol/L Normal 136-145 [facility] Comment on above: Performed By: #### L IPID, T7, TSH, CMP #### [facility] [address] [place] [address] Dr. Roxanna Dacosta Urea nitrogen [Mass/Vol] 11.0 mg/dL Normal 7.0-18.0 [facility] Comment on above: Performed By: #### L IPID, T7, TSH, CMP #### [facility] [address] [place] [address] Dr. Roxanna Dacosta Urea nitrogen/Creatinine [Mass ratio] 12.8 mg/mg Normal [facility] Comment on above: Performed By: #### L IPID, T7, TSH, CMP #### [facility] [address] [place] [address] Dr. Roxanna Dacosta TSHon 08-03-2021 TSH 5.359 uIU/mL Critically high 0.358-3.740 [facility] Comment on above: Performed By: #### L IPID, T7, TSH, CMP #### [facility] [address] [place] [address] Dr. Roxanna Dacosta TSH RANGE SEE BELOW Normal [facility] Comment on above: Result Comment: <0.3 4 UIU/ml HYPERTHYROID 0.34-5.60 UIU/ml EUTHYROID >5.60 UIU/ml HYPOTHYROID Performed By: #### L IPID, T7, TSH, CMP #### [facility] [address] [address] [address] Roxanna Dacosta VITAMIN D 25 OHon 08-03-2021 VIT D 25-OH 9.8 ng/mL Normal [facility] Comment on above: Performed By: #### V ITAD #### [facility] [address] [address] [address] Roxanna Dacosta VIT D RANGES SEE BELOW Normal [facility] Comment on above: Result Comment: <20 ng/mL Vit D deficient 20 - <30 ng/mL Vit D insufficient 30 - 100 ng/mL Vit D sufficient >100 ng/mL Potential Toxicity Performed By: #### V ITAD #### [facility] [address] [address] [address] Roxanna Dacosta Vital Signs Date Time Vital Sign Value Performing Clinician Faci lity 06-30-2023 14:18-0400 Body height 162.6 cm Jason Gonzalez [employer] FI[employer] EXAMINER-CASE WORKER Work Phone: [facility] 06-30-2023 14:18-0400 Body mass index (BMI) [Ratio] 46.48 kg/m2 Jason Gonzalez [employer] FIELD EXAMINER-CASE WORKER Work Phone: [facility] 06-30-2023 14:18-0400 Body weight 122.83 kg Jason Gonzalez [employer] FIELD EXAMINER-CASE WORKER Work Phone: [facility] 06-30-2023 14:18-0400 Diastolic blood pressure 84 mm[Hg] Jason Gonzalez [employer] FIELD EXAMINER-CASE WORKER Work Phone: [facility] 06-30-2023 14:18-0400 Systolic blood pressure 134 mm[Hg] Jason Gonzalez [employer] FIELD EXAMINER-CASE WORKER Work Phone: [facility] 05-29-2023 12:55-0400 Body height 162.6 cm [facility] 1 [facility] 05-29-2023 12:55-0400 Body mass index (BMI) [Ratio] 48.92 kg/m2 [facility] 1 [facility] 05-29-2023 12:55-0400 Body weight 129.28 kg [facility] 1 [facility] 05-27-2023 09:10 Body height 162.6 cm Rhoda Dickinson MD Work Phone: [facility] 05-27-2023 09:10-0400 Body mass index (BMI) [Ratio] 49.09 kg/m2 Rhoda Dickinson MD Work Phone: [facility] 05-27-2023 09:10040 Body weight 129.73 kg Rhoda Dickinson MD Work Phone: [facility] Encounters Encounter Date Encounter Type Care Provider Facility Start: 06-30-2023 End: 06-30-2023 ambulatory [facility] Start: 06-30-2023 End: 06-30-2023 Postop follow up visit related to original px [facility] [employer] EXAMINER-CASE WORKER Work Phone: [facility] General [facility] Comment on above: Status post laparosc opic cholecystectomy (Primary Dx) Start: 06-16-2023 End: 06-16-2023 Evaluation and management of inpatient MICHELLE MORIN [facility] Start: 06-16-2023 End: 06-16-2023 Evaluation and management of inpatient [facility] Start: 05-29-2023 End: 05-30-2023 ambulatory FERNANDO RICARDO [facility] Start: 05-29-2023 Encounter for other preprocedural examination [facility] Start: 05-29-2023 End: 05-29-2023 Patient encounter procedure [facility] Pre-Admission Testing 1 [facility] - Pre Admit Comment on above: Preop examination (P rimary Dx); BMI 45.0-49.9, adult ([facility]) Start: 05-29-2023 End: 05-29-2023 Preprocedural examination done [facility] Start: 05-27-2023 End: 05-27-2023 ambulatory [facility] Start: 05-27-2023 End: 05-27-2023 Office outpatient new 45 minutes Rhoda Dickinson MD Work Phone: [facility] General [facility] Comment on above: Biliary colic (Prima ry Dx) Start: 05-13-2023 ambulatory [facility]O 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 Phone: Plan of Treatment Date Care Activity Detail Author Start: 06-29-2024 Adult BMI Screening Adult BMI Screen ing [facility] Start: 06-29-2024 Tobacco Screening Tobacco Screening [facility] Start: 05-28-2024 Adult BMI Screening Adult BMI Screen ing [facility] Start: 05-28-2024 Tobacco Screening Tobacco Screening [facility] Start: 05-26-2024 Adult BMI Screening Adult BMI Screen ing [facility] Start: 05-26-2024 Tobacco Screening Tobacco Screening [facility] Start: 11-09-2023 Influenza vaccination Influenza Vacc ine [facility] Start: 06-30-2023 End: 06-30-2023 Patient encounter procedure 06/30/2023 2:00 PM EDT Office Visit [facility] General Surgery [address] [place] [id number] Jason Gonzalez, [employer] 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 General [facility] Start: 06-16-2023 End: 06-16-2023 Admission to same day surgery center 06/16/2023 11:45 AM EDT - 06/16/2023 1:30 PM EDT Surgery [facility] - Surgery [address] [place] [id number] Rhoda Dickinson MD [address] [place] [phone] DAVINCI CHOLECYSTECTOMY [29103 (CPT )] [facility] Surgery Comment on above: DAVINCI CHOLECYSTECT NORM [58777 (CPT )] Start: 06-16-2023 End: 06-16-2023 Laparoscopy surg cholecystectomy DAVINCI CHOLECYSTECTOMY biliary colic 06/16/2023 11:45 AM EDT [facility] Start: 06-16-2023 Subsequent hospital visit by physician 06/16/2023 11:45 AM EDT Hospital Encounter [facility] - Surgery [address] [place] [id number] Rhoda Dickinson MD [address] [place] [phone] [facility] - Surgery Start: 05-29-2023 End: 05-29-2023 Patient encounter procedure 05/29/2023 12:45 PM EDT Procedure visit [facility] - Pre Admit [address] [place] [phone] [facility] - Pre Admit Start: 11-08-2022 Influenza vaccination Influenza Vacc ine [facility] Start: 12-01-2019 DTaP,Tdap and Td Vac cines (7 - Td or Tdap) DTaP,Tdap and Td Vaccines (7 - Td or Tdap) [facility] Start: 2018 Screening for malign ant neoplasm of cervix Pap Smear [facility] Start: 06-11-2015 Adult BMI Follow Up Plan Adult BMI F ollow Up Plan [facility] Start: 2009 [facility] End: 05-26-2024 Unlisted Procedure / Surgery Unlisted Procedure / Surgery Procedures Routine Biliary colic 1 Occurrences starting 05/27/2023 until 05/26/[address] [facility] Work Phone: Comment on above: 1 Occurrences starti ng 05/27/2023 until 05/26/2024 Payers Date Payer Category Payer Medicaid [id number] 2022 Medicaid ANTH MEDICAID FORMERLY [facility] MEDICAID [id number] 2022-Present [address] [place] [address] [id number] 1997 Unknown [id number] 1997 Unknown [id number] 1997 Unknown [id number] 1997 Unknown [id number] 1997 Unknown [id number] 1997 Unknown [id number] [id number] 1997 Unknown [id number] [id number] 1997 Unknown [id number] [id number] 1997 Unknown [id number] [id number] 1997 Unknown [id number] 1997 Unknown [id number] 1959 Self-pay [id number] 1959 Unknown [id number] Social History Date Type Detail Facility Start: 05-27-2023 Tobacco smoking stat [facility] Never smoked tobacco [facility] Start: 05-27-2023 Tobacco use and exposure Smokeless tobacco non-user [facility] Start: 05-29-2023 End: 06-30-2023 Alcoholic beverage intake Ex-drinker (finding) [facility] Start: 05-29-2023 End: 06-30-2023 History of Social function [facility] Start: 05-29-2023 End: 06-30-2023 Tobacco use panel [facility] Within the past 12 months we worried whether our food would run out before we got money to buy more. Never True [facility] Start: 05-27-2023 Alcohol Comment very rarely [facility] Start: 1997 Sex assigned at Not on file [facility] Clinical Notes 05-27-2023 to 06-30-2023 Jason Gonzalez APRN-CASE WORKER - 06/30/2023 2:00 PM EDTPatient InstructionsPerioperative Nursing Note - Sherri Garsia RN - 05/29/2023 12:45 PM EDTMlisa Dickinson MD - 05/27/2023 9:15 AM EDT Note Date & Type Note Facility 06-30-2023 History of Presen t illness Narrative Images from the original note were not included. Subjective Belinda Lux is a 28 y.o. female status post robotic assisted laparoscopic cholecystectomy on 06/16/2023. She is doing well and has no concerns. She is tolerating oral intake. She denies nausea and vomiting. She denies fevers and chills. She is having regular bowel function. She is having 1 bowel movement daily, no increased diarrhea unless she eats fatty foods. Objective Vitals: 06/30/23 1418 BP: 134/84 Physical Exam Constitutional: General: She is not in acute distress. Appearance: Normal appearance. She is obese. She is not ill-appearing. Abdominal: General: There is no distension. Palpations: Abdomen is soft. Tenderness: There is no abdominal tenderness. There is no guarding. Skin: General: Skin is warm and dry. Findings: No bruising or erythema. Comments: Lap sites clean, dry and intact. No signs of infection. Neurological: Mental Status: She is alert. Final Pathologic Diagnosis Gallbladder, cholecystectomy: Cholelithiasis. Cholesterolosis. Benign lymph node. Assessment Belinda Lux is a 28 y.o.female postop laparoscopic cholecystectomy. Plan Light activity for the next 4 weeks. Follow-up as needed. Status post laparoscopic cholecystectomy [Z90.49] [facility]O H[facility] General Surgery [place] This note was created with the assistance of a speech recognition program. While intending to generate a timely document that accurately reflects the content of the visit, no guarantee can be provided that every grammatical or spelling mistake has been or will be identified or corrected. Thank you for your understanding. NEO Hall 06/30/23 1425 documented in this encounter [facility] 05-29-2023 Instructions Sherri Garsia RN - 05/29/2023 12:45 PM EDT Preoperative Education Checklist- General Surgery date: 06/16/23 Surgery time: 1145 a.m. Arrival time: 0945 a.m. 1. Bring a photo ID and your insurance card with you the day of surgery. You will check in at the main lobby of the [facility]- registration desk is straight ahead as soon as you walk in. Tell them you are here for surgery. 2. If you have a Living Will/Durable Power of [place] Supervisor for Health Care that is not on file here, please bring a copy the day of surgery. 3. Please shower/bathe the night before surgery with the provided soap or wipes. Do not shower the morning of surgery- you will do use wipes when you arrive here at the hospital before getting into your surgical gown. Do not shave the area of your procedure for 2 days prior to your surgery. 4. NO powder, lotion, perfume/cologne, aftershave, make-up, deodorant, or hair products after you have bathed. 5. NO nail sao tomean/acrylic on at least one finger. If you are having a hand, wrist or foot surgery then all nail sao tomean and artificial/acrylic nails must be removed from that hand or foot. 6. Avoid ALL Aspirin and non-steroidal anti-inflammatory drugs and certain vitamins (Ibuprofen, Advil, Aleve, Excedrin, Meloxicam, Celebrex, fish/krill oil, etc.) for 7 days prior to surgery as instructed by your surgeon and/or your prescribing doctor. Tylenol IS ALLOWED. If you are on Ticlid, Xarelto, Eliquis, Pradaxa, Plavix or Coumadin, please check with your prescribing doctor for instructions for when to stop them. 7. If you use an inhaler, continue to use it routinely. 8. Nothing to eat or drink (not even water, gum, mints, or hard candy!) AFTER midnight prior to your surgery. 9. Take only medications that you are instructed to on the morning of surgery with a TINY SIP OF WATER. 10. Choose a responsible adult that will be able to drive you home when you are discharged from your hospital stay for your surgery and can stay with you in your home for 24 hours after your procedure. You must NOT drive any vehicle or operate any machinery for 24 hours after surgery. 11. When you dress for your appointment, please wear loose fitting clothing that is appropriate to accommodate your surgical area procedure. BRING WITH YOU ANY DEVICES YOU MAY NEED: NITISH hose, ice machine, sling/swath, brace or special shoe, oversized zip-up or button up shirt, CPAP machine if staying overnight. 12. Do NOT wear jewelry, watches, or any piercings or metal for surgery- leave these valuables and money at home. 13. Do NOT wear contact lenses for surgery- glasses are okay if needed. 14. The anesthesiologist will talk with you the day of surgery and will ask you to sign a Consent Form. 15. Refrain from smoking or any type of tobacco use for at least 8 hours and marijuana for 24 hours prior to arrival for your surgery. 16. If a GREEN BLOOD band is given to you, please bring it with you for the day of surgery. 17. Notify your surgeon if you develop any illness before your surgery. 18. If you are staying overnight, please DO NOT BRING your home medications with you. 19. If you have any questions prior to surgery, please call the Preadmission Testing office at [phone], Mon.-Fri. 7 a.m.-3 p.m. Leave a voicemail if needed. Pre-Surgery Instructions: Medication Instructions cetirizine (ZyrTEC) 10 mg tablet Take morning of procedure ferrous sulfate 325 (65 FE) mg tablet Stop taking 0 days prior to procedure FLUoxetine (PROzac) 10 mg capsule Stop taking 0 days prior to procedure omeprazole (PriLOSEC) 40 mg capsule Take morning of procedure VITAMIN D3 50 mcg (2,000 unit) capsule Stop taking 0 days prior to procedure How to Avoid an Infection after Your Surgery Your doctor will give you specific instructions, but remember: -ALWAYS wash hands before caring for your incision. -No picking, scratching, or rubbing your incision. -No creams, lotion, powder, rubbing alcohol or hydrogen peroxide on the incision (can harm the tissue and slow healing). -Your doctor will give you specific instructions for what type of dressing you will need and how often it will need changed for infection purposes. -No tight clothing on incision. -Do not allow anyone to touch your incision unless they are cleaning, checking, or redressing it (be sure they wash their hands first). -No contact of your incision with pets; avoid sleeping with pets. -Take full course of antibiotic if prescribed for you after surgery- do not stop unless directed to by your physician. You may also be given an antibiotic prior to your surgery to help prevent surgical site infections. -Eat a healthy and varied diet including proteins, fruits, and vegetables to help promote wound healing and keep blood sugars under control if you are diabetic. -Smoking slows the healing process by decreasing the amount of oxygen in your blood that is needed for tissue healing. Try to avoid or stop smoking if possible. LOOK at your incision each morning and each night to check the progress of healing. Some soreness, numbness, itching and/or mild bruising around the incision is normal. Call your doctor if you notice any of the following: -Increased redness or hardening around the incision area. -Increased pain at the incision site. -Incision feels hot to the touch. -Swelling or pulling apart of the incision edges. -Yellow or green drainage or foul odor coming from the incision. -Bleeding from the incision (apply pressure as needed). -Fever higher than 101 degrees Fahrenheit for more than 4 hours. SHOWERING: Your doctor will give you specific instructions, but remember: -Be careful getting into and out of the shower. -Showers should be quick (5 minutes or less). -Use a clean washcloth to gently wash your incision with soap and water and pat the area dry with a clean towel. -No re-using wash cloths or towels; get a fresh one to clean your incision. -Do not soak in the bathtub, go swimming or use a hot tub (Jacuzzi), or perform activities where your incision is submerged in water or exposed to any fluids or substances until instructed by your doctor. -If your have the sticky strips (steri-strips) over the incision, it is OK to shower with them. Do not remove them. Let them fall off on their own. If you have a question, call your doctor s office. Go to the follow-up appointment with your doctor. documented in this encounter [id number] 05-29-2023 Miscellaneous Notes Preoperative Education Checklist- General Surgery date: 06/16/23 Surgery time: 1145 a.m. Arrival time: 0945 a.m. 1. Bring a photo ID and your insurance card with you the day of surgery. You will check in at the main lobby of the [facility]- registration desk is straight ahead as soon as you walk in. Tell them you are here for surgery. 2. If you have a Living Will/Durable Power of [place] Supervisor for Health Care that is not on file here, please bring a copy the day of surgery. 3. Please shower/bathe the night before surgery with the provided soap or wipes. Do not shower the morning of surgery- you will do use wipes when you arrive here at the hospital before getting into your surgical gown. Do not shave the area of your procedure for 2 days prior to your surgery. 4. NO powder, lotion, perfume/cologne, aftershave, make-up, deodorant, or hair products after you have bathed. 5. NO nail sao tomean/acrylic on at least one finger. If you are having a hand, wrist or foot surgery then all nail sao tomean and artificial/acrylic nails must be removed from that hand or foot. 6. Avoid ALL Aspirin and non-steroidal anti-inflammatory drugs and certain vitamins (Ibuprofen, Advil, Aleve, Excedrin, Meloxicam, Celebrex, fish/krill oil, etc.) for 7 days prior to surgery as instructed by your surgeon and/or your prescribing doctor. Tylenol IS ALLOWED. If you are on Ticlid, Xarelto, Eliquis, Pradaxa, Plavix or Coumadin, please check with your prescribing doctor for instructions for when to stop them. 7. If you use an inhaler, continue to use it routinely. 8. Nothing to eat or drink (not even water, gum, mints, or hard candy!) AFTER midnight prior to your surgery. 9. Take only medications that you are instructed to on the morning of surgery with a TINY SIP OF WATER. 10. Choose a responsible adult that will be able to drive you home when you are discharged from your hospital stay for your surgery and can stay with you in your home for 24 hours after your procedure. You must NOT drive any vehicle or operate any machinery for 24 hours after surgery. 11. When you dress for your appointment, please wear loose fitting clothing that is appropriate to accommodate your surgical area procedure. BRING WITH YOU ANY DEVICES YOU MAY NEED: NITISH hose, ice machine, sling/swath, brace or special shoe, oversized zip-up or button up shirt, CPAP machine if staying overnight. 12. Do NOT wear jewelry, watches, or any piercings or metal for surgery- leave these valuables and money at home. 13. Do NOT wear contact lenses for surgery- glasses are okay if needed. 14. The anesthesiologist will talk with you the day of surgery and will ask you to sign a Consent Form. 15. Refrain from smoking or any type of tobacco use for at least 8 hours and marijuana for 24 hours prior to arrival for your surgery. 16. If a GREEN BLOOD band is given to you, please bring it with you for the day of surgery. 17. Notify your surgeon if you develop any illness before your surgery. 18. If you are staying overnight, please DO NOT BRING your home medications with you. 19. If you have any questions prior to surgery, please call the Preadmission Testing office at [phone], Mon.-Fri. 7 a.m.-3 p.m. Leave a voicemail if needed. Pre-Surgery Instructions: Medication Instructions cetirizine (ZyrTEC) 10 mg tablet Take morning of procedure ferrous sulfate 325 (65 FE) mg tablet Stop taking 0 days prior to procedure FLUoxetine (PROzac) 10 mg capsule Stop taking 0 days prior to procedure omeprazole (PriLOSEC) 40 mg capsule Take morning of procedure VITAMIN D3 50 mcg (2,000 unit) capsule Stop taking 0 days prior to procedure How to Avoid an Infection after Your Surgery Your doctor will give you specific instructions, but remember: -ALWAYS wash hands before caring for your incision. -No picking, scratching, or rubbing your incision. -No creams, lotion, powder, rubbing alcohol or hydrogen peroxide on the incision (can harm the tissue and slow healing). -Your doctor will give you specific instructions for what type of dressing you will need and how often it will need changed for infection purposes. -No tight clothing on incision. -Do not allow anyone to touch your incision unless they are cleaning, checking, or redressing it (be sure they wash their hands first). -No contact of your incision with pets; avoid sleeping with pets. -Take full course of antibiotic if prescribed for you after surgery- do not stop unless directed to by your physician. You may also be given an antibiotic prior to your surgery to help prevent surgical site infections. -Eat a healthy and varied diet including proteins, fruits, and vegetables to help promote wound healing and keep blood sugars under control if you are diabetic. -Smoking slows the healing process by decreasing the amount of oxygen in your blood that is needed for tissue healing. Try to avoid or stop smoking if possible. LOOK at your incision each morning and each night to check the progress of healing. Some soreness, numbness, itching and/or mild bruising around the incision is normal. Call your doctor if you notice any of the following: -Increased redness or hardening around the incision area. -Increased pain at the incision site. -Incision feels hot to the touch. -Swelling or pulling apart of the incision edges. -Yellow or green drainage or foul odor coming from the incision. -Bleeding from the incision (apply pressure as needed). -Fever higher than 101 degrees Fahrenheit for more than 4 hours. SHOWERING: Your doctor will give you specific instructions, but remember: -Be careful getting into and out of the shower. -Showers should be quick (5 minutes or less). -Use a clean washcloth to gently wash your incision with soap and water and pat the area dry with a clean towel. -No re-using wash cloths or towels; get a fresh one to clean your incision. -Do not soak in the bathtub, go swimming or use a hot tub (Jacuzzi), or perform activities where your incision is submerged in water or exposed to any fluids or substances until instructed by your doctor. -If your have the sticky strips (steri-strips) over the incision, it is OK to shower with them. Do not remove them. Let them fall off on their own. If you have a question, call your doctor s office. Go to the follow-up appointment with your doctor. Hibiclens and surgical instructions reviewed. Patient verbalized understanding. documented in this encounter [facility] 05-29-2023 Nurse Note Preoperative Education Checklist- General Surgery date: 06/16/23 Surgery time: 1145 a.m. Arrival time: 0945 a.m. 1. Bring a photo ID and your insurance card with you the day of surgery. You will check in at the main lobby of the [facility]- registration desk is straight ahead as soon as you walk in. Tell them you are here for surgery. 2. If you have a Living Will/Durable Power of [place] Supervisor for Health Care that is not on file here, please bring a copy the day of surgery. 3. Please shower/bathe the night before surgery with the provided soap or wipes. Do not shower the morning of surgery- you will do use wipes when you arrive here at the hospital before getting into your surgical gown. Do not shave the area of your procedure for 2 days prior to your surgery. 4. NO powder, lotion, perfume/cologne, aftershave, make-up, deodorant, or hair products after you have bathed. 5. NO nail sao tomean/acrylic on at least one finger. If you are having a hand, wrist or foot surgery then all nail sao tomean and artificial/acrylic nails must be removed from that hand or foot. 6. Avoid ALL Aspirin and non-steroidal anti-inflammatory drugs and certain vitamins (Ibuprofen, Advil, Aleve, Excedrin, Meloxicam, Celebrex, fish/krill oil, etc.) for 7 days prior to surgery as instructed by your surgeon and/or your prescribing doctor. Tylenol IS ALLOWED. If you are on Ticlid, Xarelto, Eliquis, Pradaxa, Plavix or Coumadin, please check with your prescribing doctor for instructions for when to stop them. 7. If you use an inhaler, continue to use it routinely. 8. Nothing to eat or drink (not even water, gum, mints, or hard candy!) AFTER midnight prior to your surgery. 9. Take only medications that you are instructed to on the morning of surgery with a TINY SIP OF WATER. 10. Choose a responsible adult that will be able to drive you home when you are discharged from your hospital stay for your surgery and can stay with you in your home for 24 hours after your procedure. You must NOT drive any vehicle or operate any machinery for 24 hours after surgery. 11. When you dress for your appointment, please wear loose fitting clothing that is appropriate to accommodate your surgical area procedure. BRING WITH YOU ANY DEVICES YOU MAY NEED: NITISH hose, ice machine, sling/swath, brace or special shoe, oversized zip-up or button up shirt, CPAP machine if staying overnight. 12. Do NOT wear jewelry, watches, or any piercings or metal for surgery- leave these valuables and money at home. 13. Do NOT wear contact lenses for surgery- glasses are okay if needed. 14. The anesthesiologist will talk with you the day of surgery and will ask you to sign a Consent Form. 15. Refrain from smoking or any type of tobacco use for at least 8 hours and marijuana for 24 hours prior to arrival for your surgery. 16. If a GREEN BLOOD band is given to you, please bring it with you for the day of surgery. 17. Notify your surgeon if you develop any illness before your surgery. 18. If you are staying overnight, please DO NOT BRING your home medications with you. 19. If you have any questions prior to surgery, please call the Pread[facility] Testing office at [phone], Mon.-Fri. 7 a.m.-3 p.m. Leave a voicemail if needed. Pre-Surgery Instructions: Medication Instructions cetirizine (ZyrTEC) 10 mg tablet Take morning of procedure ferrous sulfate 325 (65 FE) mg tablet Stop taking 0 days prior to procedure FLUoxetine (PROzac) 10 mg capsule Stop taking 0 days prior to procedure omeprazole (PriLOSEC) 40 mg capsule Take morning of procedure VITAMIN D3 50 mcg (2,000 unit) capsule Stop taking 0 days prior to procedure How to Avoid an Infection after Your Surgery Your doctor will give you specific instructions, but remember: -ALWAYS wash hands before caring for your incision. -No picking, scratching, or rubbing your incision. -No creams, lotion, powder, rubbing alcohol or hydrogen peroxide on the incision (can harm the tissue and slow healing). -Your doctor will give you specific instructions for what type of dressing you will need and how often it will need changed for infection purposes. -No tight clothing on incision. -Do not allow anyone to touch your incision unless they are cleaning, checking, or redressing it (be sure they wash their hands first). -No contact of your incision with pets; avoid sleeping with pets. -Take full course of antibiotic if prescribed for you after surgery- do not stop unless directed to by your physician. You may also be given an antibiotic prior to your surgery to help prevent surgical site infections. -Eat a healthy and varied diet including proteins, fruits, and vegetables to help promote wound healing and keep blood sugars under control if you are diabetic. -Smoking slows the healing process by decreasing the amount of oxygen in your blood that is needed for tissue healing. Try to avoid or stop smoking if possible. LOOK at your incision each morning and each night to check the progress of healing. Some soreness, numbness, itching and/or mild bruising around the incision is normal. Call your doctor if you notice any of the following: -Increased redness or hardening around the incision area. -Increased pain at the incision site. -Incision feels hot to the touch. -Swelling or pulling apart of the incision edges. -Yellow or green drainage or foul odor coming from the incision. -Bleeding from the incision (apply pressure as needed). -Fever higher than 101 degrees Fahrenheit for more than 4 hours. SHOWERING: Your doctor will give you specific instructions, but remember: -Be careful getting into and out of the shower. -Showers should be quick (5 minutes or less). -Use a clean washcloth to gently wash your incision with soap and water and pat the area dry with a clean towel. -No re-using wash cloths or towels; get a fresh one to clean your incision. -Do not soak in the bathtub, go swimming or use a hot tub (Jacuzzi), or perform activities where your incision is submerged in water or exposed to any fluids or substances until instructed by your doctor. -If your have the sticky strips (steri-strips) over the incision, it is OK to shower with them. Do not remove them. Let them fall off on their own. If you have a question, call your doctor s office. Go to the follow-up appointment with your doctor. [facility] 05-29-2023 Nurse Note Hibiclens and surgical instructions reviewed. Patient verbalized understanding. [facility] 05-27-2023 History of Presen t illness Narrative Images from the original note were not included. Chief Complaint: Epigastric pain History of Present Illness: Belinda Lux is a 27 y.o. female who presents to the office for evaluation of epigastric pain. On on 05/06/2023 she presented to [facility] ER with acute onset epigastric pain. Prior to development of the pain, she had a Bulgarian bread pizza. The pain was constant and severe. The pain lasted for which prompted her to go to the ER for evaluation. This was associated with back pain and nausea. She denies any emesis. She denies any fevers or chills. She states that the pain worsened with breathing. Prior to this episode she had a similar episode 2 months prior that woke her up in the middle of the night. She does not remember what she had for dinner. She feels that the episodes started randomly. She does have GERD and notes symptoms of heartburn and intermittent abdominal pain, however she feels that this pain is different. In the ER, she was noted to have right upper quadrant as well as epigastric tenderness. Labs showed no leukocytosis, LFTs were within normal limits. Ultrasound of the right upper quadrant revealed cholelithiasis and gallbladder sludge, no gallbladder wall thickening, normal CBD diameter. Also noted on ultrasound was hepatic steatosis. Her past medical history includes morbid obesity, iron deficiency anemia, prediabetes and GERD. She denies any past surgical history. She denies any allergies. She is currently unemployed. HPI Review of Systems Constitutional: Negative for fever and chills. Respiratory: Negative for shortness of breath. Cardiovascular: Negative for chest pain and palpitations. Gastrointestinal: Positive for nausea and abdominal pain. Negative for vomiting. Genitourinary: Negative for dysuria and difficulty urinating. Skin: Negative for rash and wound. Allergic/Immunologic: Negative for immunocompromised state. Neurological: Negative for weakness and light-headedness. Hematological: Does not bruise/bleed easily. Psychiatric/Behavioral: Negative for behavioral problems and confusion. Past Medical History: Diagnosis Date Pre-diabetes History reviewed. No pertinent surgical history. No Known Allergies Current Outpatient Medications: cetirizine (ZyrTEC) 10 mg tablet, Take 1 tablet (10 mg total) by mouth in the morning., Disp: , Rfl: ferrous sulfate 325 (65 FE) mg tablet, Take 1 tablet (325 mg total) by mouth in the morning and 1 tablet (325 mg total) in the evening. Take with meals., Disp: , Rfl: FLUoxetine (PROzac) 10 mg capsule, Take 1 capsule (10 mg total) by mouth in the morning., Disp: , Rfl: omeprazole (PriLOSEC) 40 mg capsule, Take 1 capsule (40 mg total) by mouth every morning before breakfast., Disp: , Rfl: VITAMIN D3 50 mcg (2,000 unit) capsule, Take 1 capsule (2,000 Units total) by mouth in the morning., Disp: , Rfl: Social History Socioeconomic History Marital status: Single Spouse name: Not on file Number of children: Not on file Years of education: Not on file Highest education level: Not on file Occupational History Not on file Tobacco Use Smoking status: Never Smokeless tobacco: Never Vaping Use Vaping Use: Never used Substance and Sexual Activity Alcohol use: Not Currently Comment: very rarely Drug use: Never Sexual activity: Not Currently Other Topics Concern Not on file Social History Narrative Not on file Social Determinants of Health Financial Resource Strain: Not on file Food Insecurity: Not on file Transportation Needs: Not on file Physical Activity: Not on file Stress: Not on file Social Connections: Not on file Interpersonal Safety: Not on file Housing Instability: Not on file Family History Problem Relation Age of Onset Diabetes type I Father Diabetes type I Sister Parkinsonism Paternal Grandfather Diabetes type I Cousin Physical Exam Vitals reviewed. Constitutional: Appearance: Normal appearance. She is obese. HENT: Head: Normocephalic and atraumatic. Eyes: Pupils: Pupils are equal, round, and reactive to light. Cardiovascular: Rate and Rhythm: Normal rate. Pulmonary: Effort: Pulmonary effort is normal. Abdominal: General: There is no distension. Palpations: Abdomen is soft. Tenderness: There is no abdominal tenderness. Musculoskeletal: General: No swelling. Skin: General: Skin is warm and dry. Neurological: Mental Status: She is alert and oriented to person, place, and time. Mental status is at baseline. Psychiatric: Mood and Affect: Mood normal. Behavior: Behavior normal. Vital Signs: Height 162.6 cm (5' 4 ), weight 129.7 kg (286 lb). Respiratory Source: No data recorded Admission Weight: Weight: 129.7 kg (286 lb) Labs: No results found for: WBC , HGB , HCT , MCV , PLT No results found for: GLU , CALCIUM , NA , K , CO2 , CL , BUN , CREATININE No results found for: AMYLASE No results found for: LIPASE No results found for: ALT , AST , GGT , ALKPHOS , LABBILI No results found for: INR , PROTIME Imaging: As above Assessment: Belinda Lux is a 27 y.o.female with biliary colic Biliary colic [K80.50] Plan: Schedule for elective robotic cholecystectomy, possible open, possible IOC She was counseled on weight loss, healthy diet and increasing physical activity. We discussed that obesity increases risk of perioperative complications such as surgical site infection as well as increases risk of hernia occurrence. The reasons for surgery, alternatives to surgery, and natural history of the disease without surgery were addressed with the patient. We discussed the potential risks and benefits of the surgery. I gave ample opportunity for the patient to ask questions which I answered to their apparent satisfaction. She seemed to understand and provided consent. Evaluation included: Preparing to see the patient (e.g., review of tests) Obtaining and/or reviewing separately obtained history Performing a medically appropriate examination and/or evaluation Counseling and educating the patient/family/caregiver Referring and communicating with other health manager progressive care Rhoda Dickinson MD [facility] [place] documented in this encounter [facility] Evaluation note Diagnosis Status post laparoscopic cholecystectomy- Primary Other postprocedural status [facility] Biliary colic- Primary Calculus of gallbladder without mention of cholecystitis or obstruction Preop examination- Primary Unspecified pre-operative examination BMI 45.0-49.9, adult ([facility]) [facility] Preop examination- Primary Unspecified pre-operative examination BMI 45.0-49.9, adult (CMS-HCC) [facility] Summary Purpose Family History No Family History Records FoundNo Family History Records FoundNo Family History Records Found Advance Directives No Advanced Directives Records FoundNo Advanced Directives Records FoundNo Advanced Directives Records Found Reason for Referral Specialty Diagnoses / Procedures Referred By Umer hurtado Referred To Contact Diagnoses Biliary colic Procedures Unlisted Procedure / Surgery Rhoda Dickinson MD [address] [place] [address] Referral ID Status Reason Start Date Expiration Date V isits Requested Visits Authorized [id number] Pending Review 05/27/2023 05/26/2024 1 1 Specialty Diagnoses / Procedures Referred By Contac t Referred To Contact Diagnoses Preop examination BMI 45.0-49.9, adult (CMS-HCC) Procedures ECG 12 lead Fernando Ricardo MD [address] [place] [address] Referral ID Status Reason Start Date Expiration Date V isits Requested Visits Authorized [id number] Pending Review 05/27/2023 05/26/2024 1 1 Additional Source Comments INFORMATION SOURCE (unrecogn ized section and content) DATE CREATED AUTHOR 08/10/2021 [facility] DATE CREATED AUTHOR AUTHOR'S ORGANIZ ATION 06/24/2023 [facility] DATE CREATED AUTHOR AUTHOR'S ORGANIZ ATION 07/01/[address] [facility] Reason for Visit (unrecogniz ed section and content) Reason Comments POST-OP VISIT POST OP - [facility] OLECYSTECTOMY PERFORMED 06/16/[address] DICKINSON Reason Comments Cholelithiasis GALLSTONES, [facility] 05/06 Care Teams (unrecognized sec tion and content) Basketball Commentator Relationship Specialty Start Date End Date Debra Burnett APRN-CNP [address] [place] [address] PCP - General Family Medicine 05/08/23 Basketball Commentator Relationship Specialty Start Date End Date Debra Burnett APRN-CNP [address] [facility] [place] [address] PCP - General Family Medicine 05/08/23 Basketball Commentator Relationship Specialty Start Date End Date Debra Burnett APRN-CNP [address] [facility] [address] PCP - General Family Medicine 05/08/23 FOR RECORDS PERTAINING TO PATIENTS WHO ARE OR HAVE BEEN ENROLLED IN A CHEMICAL DEPENDENCY/SUBSTANCEABUSE PROGRAM, SOME INFORMATION MAY BE OMITTED. This clinical summary was aggregated from multiple sources. Caution should be exercised in using it in the provision of clinical care. This summary normalizes information from multiple sources, and as a consequence, information in this document may materially change the coding, format and clinical context of patient data. In addition, data may be omitted in some cases. CLINICAL DECISIONS SHOULD BE BASED ON THE PRIMARY CLINICAL RECORDS. [employer] provides no warranty or guarantee of the accuracy or completeness of information in this document.
--- OUTSIDE RECORDS SUMMARY | 2024-08-27 06:59 | XMS_ITS | Patient Health Record ---
Demographics Address [address] [place] [address] Mobile Email Address Preferred Language en Marital Status unmarried Taoist Affiliation Unknown Race White Ethnic Group Not or Lati no Author Organization [facility] [place] Address [address] [place] [address] Care Team Providers [employer] Supplies Sales Name Role Phone Debra Burnett Primary Care Provider [phone] Allergies No Known Allergies Reason For Referral No Information Medications Medication SIG (Take, Route, Frequency, Duration) Notes Start Date End Date Status FLUoxetine HCl 20 MG TAKE 1 CAPSULE BY M OUTH EVERY DAY Once a day for 90 days Active Cetirizine HCl 10 MG TAKE 1 [...] FOR 30 DAYS for 90 days Active Social History Tobacco Use: Social History Observation Description Date Details (start date - stop date) Never Smoker NA - NA Tobacco Use/Smoking Question Answer Notes Patient is a nonsmoker Alcohol Screen (Audit-C) Question Answer Notes Did you have a drink contain ing alcohol in the past year? Yes How often did you have 6 or more drinks on one occasion in the past year? Never (0 point) How many drinks did you have on a typical day when you were drinking in the past year? 1 or 2 drinks (0 point) How often did you have a dri nk containing alcohol in the past year? Less than monthly (1 point) Points 1 Interpretation Negative AUDIT-C (Standard) Question Answer Notes Did you have a drink containing alcohol in the p ast year? No Points 0 Interpretation Negative Problems Problem Type SNOMED Code ICD Code Onset Dates Problem Status W/U Status Risk Notes Problem [id number] Gastro-esophagea l reflux disease without esophagitis (K21.9) Active confirmed Problem 495917970 Anxiety disorder , unspecified (F41.9) Active confirmed Problem Cholelithiasis (331360093) Cholelithiases (K80.20) Active confirmed Problem Pervasive developmental disorder (disorder) (74944607) Autism spectrum (F84.0) Active confirmed Vital Signs Blood pressure diastolic 64 mm Hg 08/26/2024 Height 64 in 08/26/2024 Blood pressure systolic 110 mm Hg 08/26/2024 Weight 281 lbs 08/26/2024 BMI 48.23 kg/m2 08/26/2024 Encounters Encounter Location Date Provider Diagnosis [facility] [address] [place] [address] 07/29/2024 Debra Burnett [facility] [address] [place] [address] 08/26/2024 Debra Burnett [facility] [address] [place] [address] 08/26/2024 Debra Burnett Anxiety disorder, unspecified F41.9 and Wellness examination Z00.00 Assessments Encounter Date Diagnosis (ICD Code) Assessment Notes Treatment Notes Treatment Clinical Notes Section Notes 08/26/2024 Anxiety disorder, unspecified (ICD-10 - F41.9) increase dose of prozac 08/26/2024 Wellness examination (ICD-10 - Z00.00) ROS done exam done encouraged fu obgyn for paps labs ordered discussed weight Plan Of Treatment Pending Test Test Name Order Date CMP (COMPLETE METABOLIC PANEL) HEMOGLOBIN A1C (GLYCO) 07/18/2023 HEMOGLOBIN A1C (GLYCO) 08/26/2024 IRON, TOTAL 08/26/2024 IRON, TOTAL 07/18/2023 LIPID PANEL (CHOL/TRIG/HDL/LDL) 08/27/19 25 LIPID PANEL (CHOL/TRIG/HDL/LDL) 07/18/19 24 CBC WITH DIFF 07/18/2023 VITAMIN D, 25 LEVEL (TOTAL) 08/26/2024 VITAMIN D, 25 LEVEL (TOTAL) 07/18/2023 Insulin Level 07/18/2023 Insulin Level 08/26/2024 THYROID PANEL (T4/TSH/FREE T3) 5 THYROID PANEL (T4/TSH/FREE T3) 4 CMP (COMP MET MYRICK) w/eGFR CKD-EPI 2024 CBC WITH DIFF 08/26/2024 Insurance Providers Payer Name Payer Address Payer Phone Subscriber Number Group Number Insured Name Patient Relationship to Insured Coverage Start Date Coverage End Date [employer] [place] [employer] [address] [address] [place] [address] [id number] Gabriela Gomez Self - patient is the insured Medical (General) History Medical History History ICD Code Vitamin D deficiency E55.9 Hyperglycemia R73.9 Iron deficiency anemia D50.9 Seasonal allergies J30.2 Depression F32.9 GERD (gastroesophageal reflux disease) K 21.9 Anxiety F41.9 Surgical History Surgery Date(Month/Year) gallbladder removed 06-16-23 Hospitalization History Reason Date(Month/Year) denies
[2024-08-27 07:26] LABS: Basophils Percent Auto 0.3 % (0.2-2.0); Eosinophils Absolute Auto 0.3 10^3/uL (0.0-0.7); Eosinophils Percent Auto 2.7 % (0.9-7.0); Hematocrit 34.7 % (36.0-48.0); Hemoglobin 10.4 g/dL (12.0-16.0); Immature Granulocytes Abs Auto 0.03 10^3/uL (0.00-0.03); Immature Granulocytes Pct Auto 0.3 % (0.0-0.5); Lymphocytes Absolute Auto 2.8 10^3/uL (1.2-3.8); Lymphocytes Percent Auto 26.8 % (20.5-60.0); Mean Corpuscular Hemoglobin 21.4 pg (26.7-34.0); Mean Corpuscular Volume 71.4 fL (81.0-99.0); Mean Platelet Volume 10.4 fL (9.5-13.5); Monocytes Absolute Auto 0.6 10^3/uL (0.3-0.8); Monocytes Percent Auto 5.4 % (1.7-12.0); Neutrophils Absolute Auto 6.6 10^3/uL (1.4-6.5); Neutrophils Percent Auto 64.5 % (43.0-75.0); Platelet Count 370 10^3/uL (150-450); Red Blood Count 4.86 10^6/uL (4.20-5.40); Red Cell Distribution Width 16.8 % (11.0-15.0); White Blood Count 10.3 10^3/uL (4.0-11.0)
[2024-08-27 08:01] LABS: Estimated Average Glucose 117 mg/dL; Glycohemoglobin A1C 5.7 % (4.5-6.2)
[2024-08-27 08:05] LABS: Alanine Aminotransferase 16 U/L (14-59); Albumin Globulin Ratio 0.9; Albumin Level 3.4 g/dL (3.4-5.0); Alkaline Phosphatase 75 U/L (46-116); Anion Gap 15.5; Aspartate Amino Transferase 13 U/L (15-37); BUN Creatinine Ratio 12.7; Bilirubin Total 0.2 mg/dL (0.2-1.0); Calcium 8.3 mg/dL (8.5-10.1); Carbon Dioxide 25.3 mmol/L (21.0-32.0); Chloride 105 mmol/L (98-107); Chol HDL Ratio 2.2; Cholesterol 94 mg/dL (<=200); Estimated GFR (African America >60 (>=60 mL/min/1.73m^2); Estimated GFR (Non-African Ame >60 (>=60 mL/min/1.73m^2); Free T3 2.19 pg/mL (2.18-3.98); Globulin 3.7 g/dL; Glucose 105 mg/dL (74-106); HDL Cholesterol 42 mg/dL (40-60); LDL Cholesterol Calculated 39.4 mg/dL; Potassium 3.8 mmol/L (3.5-5.1); Sodium 142 mmol/L (136-145); Thyroid Stimulating Hormone 1.522 uIU/mL (0.358-3.740); Total Protein 7.1 g/dL (6.4-8.2); Triglycerides 63 mg/dL (<=150); VLDL CHOLESTEROL 12.6 mg/dL
[2024-08-28 03:11] LABS: Insulin 25.9 uIU/mL (2.6-24.9)
== END 2024-08-27 06:55 | disposition home or self-care (01) ==
LOC: LAB 06:56
PROVIDERS: PCP Nurse Practitioner Family; Visit Provider Nurse Practitioner Family
DX: Z00.00 Encounter for general adult medical examination without abnormal findings (principal)
CPT/HCPCS: 36415; 80053; 80061; 82306; 83036; 83525; 83540; 84436; 84443; 84481; 85025